=== PATIENT | female | born 1965 | race Caucasian/White ===

== ENCOUNTER 2020-05-19 | Outpatient (REF) | payer OTHER, SELFPAY ==
[2020-05-20 13:50] LABS: FIT1 NEGATIVE (NEGATIVE)
[2020-05-20 13:51] LABS: FIT Int Ctl YES; FIT2 NEGATIVE (NEGATIVE)
== END 2020-05-19 00:01 | disposition home or self-care (01) ==
LOC: HO.LNP
PROVIDERS: Visit Provider Internal Medicine
DX: R19.5 Other fecal abnormalities (principal)
CPT/HCPCS: 82274

== ENCOUNTER 2020-05-20 07:14 | Outpatient (REF) | payer OTHER, SELFPAY ==
[2020-05-20 11:07] LABS: MANUAL DIFF FLAG NO
[2020-05-20 11:22] LABS: Basophils Percent Auto 0.8 % (0-2); Eosinophils Absolute Auto 0.3 X10*3/uL (0.0-0.4); Eosinophils Percent Auto 5.3 % (0-4); Hemoglobin 13.8 g/dl (12.0-16.0); Imm Gran Abs Auto 0.01 X10*3/uL (0.00-0.03); Imm Gran Pct Auto 0.2 % (0.0-0.4); Lymphocytes Absolute Auto 2.2 X10*3/uL (1.2-4.9); Lymphocytes Percent Auto 43.8 % (20-40); Mean Corpuscular HGB Conc 32.9 g/dl (31.0-35.0); Mean Corpuscular Hemoglobin 28.5 pg (27.0-33.0); Mean Corpuscular Volume 86.6 fL (80-98); Mean Platelet Volume 10.7 fL (9.4-12.3); Monocytes Absolute Auto 0.5 X10*3/uL (0.1-1.2); Monocytes Percent Auto 10.8 % (2-11); Neutrophils Absolute Auto 1.9 X10*3/uL (2.0-8.3); Neutrophils Percent Auto 39.1 % (45-73); Platelet Count 248 X10*3/uL (160-400); Red Blood Count 4.85 X10*6/uL (4.20-5.50); Red Cell Distribution Width 12.7 % (11.0-16.0); White Blood Count 4.9 X10*3/uL (4.8-10.8)
[2020-05-20 11:52] LABS: Alanine Aminotransferase 13 U/L (0-31); Anion Gap 14 (12-20); Aspartate Amino Transferase 19 U/L (5-31); Blood Urea Nitrogen 16 mg/dL (9-16); Calcium 8.8 mg/dL (8.4-10.2); Carbon Dioxide 29 mmol/L (22-29); Chloride 105 mmol/L (96-108); Cholesterol 201 mg/dL; Estimated Glomerular Filt Rate > 60; Glucose Fasting 102 mg/dL (60-99); HDL Cholesterol 57 mg/dL; Iron 74 mcg/dL (30-160); LDL Cholesterol Calculated 133 mg/dl; Percent Iron Saturation 24 % (15-50); Potassium 4.3 mmol/L (3.3-5.1); Sodium 144 mmol/L (135-145); Total Iron Binding Capacity 304 mcg/dL (228-428); Triglycerides 57 mg/dL; Unsaturated Iron Binding 230 ug/dL
[2020-05-20 12:18] LABS: Ferritin 69 ng/mL (10-250); Free T4 (Free Thyroxine) 0.97 ng/dL (0.71-1.85); Thyroid Stimulating Hormone 1.55 uIU/mL (0.32-4.0); Vitamin D 25-OH Total 31.3 ng/mL (>30)
[2020-05-21 08:21] LABS: Thyroid Peroxidase Antibodies 1 IU/mL (<9)
== END 2020-05-20 07:15 | disposition home or self-care (01) ==
LOC: HO.HMGCLDS 07:14
PROVIDERS: PCP Internal Medicine; Visit Provider Internal Medicine
DX: Z00.01 Encounter for general adult medical examination with abnormal findings (principal); E03.9 Hypothyroidism, unspecified; E28.319 Asymptomatic premature menopause; E55.9 Vitamin D deficiency, unspecified; I10 Essential (primary) hypertension; Z86.2 Personal history of diseases of the blood and blood-forming organs and certain disorders involving the immune mechanism
CPT/HCPCS: 36415; 80048; 80061; 82306; 82728; 83540; 84439; 84443; 84450; 84460; 85025; 86376

== ENCOUNTER 2021-03-25 14:24 | Outpatient (REF) | payer OTHER, SELFPAY ==
--- NOTE | ~2021-03-25 | MM_ITS ---
EXAMINATION: MM SCREENING DIGITAL BREAST TOMOSYNTHESIS, BILATERAL CLINICAL INFORMATION: Screening. Asymptomatic. The lifetime risk of breast cancer based on the Tyrer-Cuzick Model is 9%. COMPARISON: Mammography: 11/29/2019, 07/04/2018, 06/22/2017 TECHNIQUE: Digital breast tomosynthesis is performed in both the craniocaudal and mediolateral oblique views along with computer-aided detection (CAD). Synthesized 2D images are generated from the tomosynthesis. FINDINGS: There are scattered areas of fibroglandular density (ACR BI-RADS breast composition Category b). There are no significant masses, abnormal calcifications, or other abnormalities. Small benign nodularity mid central 6:00 position left breast is decreased since 2018. There is no developing density or architectural abnormality. The bilateral axilla and skin contours are unremarkable. MM/MM tomosynthesis screening BI IMPRESSION: No mammographic evidence of malignancy. ASSESSMENT: BI-RADS 2: Benign RECOMMENDATION: Routine annual mammography screening. This patient's information was entered into a reminder system with a target due date for their next mammogram.
== END 2021-03-25 14:25 | disposition home or self-care (01) ==
LOC: HO.MAMMO 14:24
PROVIDERS: PCP Internal Medicine; Visit Provider Internal Medicine
DX: Z12.31 Encounter for screening mammogram for malignant neoplasm of breast (principal)
CPT/HCPCS: 77063; 77067

== ENCOUNTER 2021-06-05 14:53 | Outpatient (REF) | payer OTHER, SELFPAY ==
--- NOTE | ~2021-06-05 | XR_ITS ---
EXAMINATION: XR SHOULDER, RIGHT CLINICAL INFORMATION: Right shoulder pain COMPARISON: None TECHNIQUE: Right shoulder is imaged in 3 views. FINDINGS: There is no fracture, dislocation, destructive process. No arthropathy. No joint narrowing or erosive change. Bony mineralization is normal. There are no visible rotator cuff calcifications. XR/XR shoulder RT min 2V IMPRESSION: Normal right shoulder.
== END 2021-06-05 14:54 | disposition home or self-care (01) ==
LOC: HO.HOSX 14:53
PROVIDERS: PCP Internal Medicine; Visit Provider Orthopaedic Surgery
DX: M25.511 Pain in right shoulder (principal); S46.211A Strain of muscle, fascia and tendon of other parts of biceps, right arm, initial encounter; X58.XXXA Exposure to other specified factors, initial encounter; Y93.9 Activity, unspecified; Y92.9 Unspecified place or not applicable; Y99.8 Other external cause status; D64.9 Anemia, unspecified; E03.9 Hypothyroidism, unspecified; E55.9 Vitamin D deficiency, unspecified; J45.20 Mild intermittent asthma, uncomplicated; Z96.611 Presence of right artificial shoulder joint
CPT/HCPCS: 73030

== ENCOUNTER → 2021-08-07 08:58 | Outpatient (BNVA) | payer OTHER, SELFPAY | PROVIDERS: PCP Internal Medicine; Visit Provider Orthopaedic Surgery | DX: Z13.89 Encounter for screening for other disorder (principal) ==

== ENCOUNTER 2021-08-20 08:00 | Outpatient (RCR) | payer OTHER, SELFPAY ==
--- NOTE | 2021-07-15 13:47 | MHC.PT.EP ---
[facility] [place] Office [place] Office [place] Office [address] David Madden [address] [phone] F: [phone] F: [phone] F: [phone] F: [phone] Physical Therapy Plan of Care Date of Evaluation: Date of Surgery: Diagnosis: This is a 55 yo female presenting to skilled PT with a script for tear of R bicep muscle Assessment: This is a 55 yo female presenting to skilled PT with a script for tear of R bicep muscle. She reports that her pain has been present for about 6-7 months ago but has gotten significantly worse recently (pain was gradual without injury). Pain is located at the R shoulder and runs down the elbow or a little past. Pain is described as stabbing and burning. Pain is pretty constant. She also has a hx of left shoulder 04/15/2016, pain feels very similar to this on the R. Pain increases with reaching, lifting, ADLs. Assessment reveals pain that ranges up to a 7/10. She demos decreased shoulder and cervical ROM, decreased shoulder and scapular strength, impaired posture with forward GHJ, TTP throughout GHJ and scap as well as gross functional decline with pushing, pulling, reaching and lifting. She demos + s/s for impingement. She is a good candidate for skilled PT 2x/wk for 5wks however to due schedule she will be coming in 1x/wk and will be I with program at home. She is interested in an MRI for further dx especially as her symptoms are similar to her L prior to surgery Frequency and Duration: The patient will be seen 2x/wk for 5wks Short Term Goals: I in HEP Demo proper cervical alignment and posture with ther-ex, no PT cuing Nursing Home Goals: Demo normal cervical AROM without pain Improve pain to no more than 2/10 at the worst Improve SPADI by 10 points Tolerate sleeping through the night without waking from pain Demo at least 4+/5 scapular and shoulder strength Treatment Plan: Modalities to reduce pain, spasms and effusion. Manual therapy to restore motion and function. Therapeutic exercise to improve strength and flexibility. Neuromuscular re-education for posture and balance. Therapeutic activities to return to functional activities of daily living. Electronically signed by: Davina Cash PT Please sign and return to therapist. Thank you for your referral.
--- NOTE | 2021-08-06 09:02 | MHC.PT.PR ---
[facility] [place] Office [place] Office [place] Office [address] David Madden [address] [phone] F: [phone] F: [phone] F: [phone] F: [phone] Physical Therapy Progress Note Diagnosis: This is a 55 yo female presenting to skilled PT with a script for tear of R bicep muscle Date of Surgery: Date of Evaluation: 07/15/21 Treatments to Date: 4 Cancellations to Date: 0 No Shows to Date: 0 Subjective: Patient feels like pain is getting worse, pain is radiating into the elbow Pain Score and Location: 7 R shoulder Objective Measures: Please see eval Assessment: 08/06: Rebeca is seeing ortho again tomorrow. She feels like she is getting worse, pain is now radiating into the elbow. With PT we have tried ionto for pain, manual and soft tissue tendon massage if tendinopathy present, postural ed with light strengthening and ROM to improve function and prevent frozen shoulder. Tx techniques do not appear to be helping and we discussed referral back to ortho at this time. Her MRI has been denied in the past by insurance. She does still have 3 more appointments booked, educated her to call my office after she sees the MD today. Held ionto patch 07/30: Patient continues to have pain, ionto patch provided 3 hrs of relief so continued this today with #2. She will be calling ortho for a follow up as she feels like her pain is similar to the last time she had surgery. 07/25: Patient was very tender with IASTM. We discussed the ionto patch which we trialed today as #1 as she felt like her pain was deeper than muscle. Skin intact to light touch and ed on care was given. Updated HEP once more. Still reported pain s/p session. This is a 55 yo female presenting to skilled PT with a script for tear of R bicep muscle. She reports that her pain has been present for about 6-7 months ago but has gotten significantly worse recently (pain was gradual without injury). Pain is located at the R shoulder and runs down the elbow or a little past. Pain is described as stabbing and burning. Pain is pretty constant. She also has a hx of left shoulder 04/15/2016, pain feels very similar to this on the R. Pain increases with reaching, lifting, ADLs. Assessment reveals pain that ranges up to a 7/10. She demos decreased shoulder and cervical ROM, decreased shoulder and scapular strength, impaired posture with forward GHJ, TTP throughout GHJ and scap as well as gross functional decline with pushing, pulling, reaching and lifting. She demos + s/s for impingement. She is a good candidate for skilled PT 2x/wk for 5wks however to due schedule she will be coming in 1x/wk and will be I with program at home. She is interested in an MRI for further dx especially as her symptoms are similar to her L prior to surgery PT Plan: Hold PT Frequency and Duration: The patient will be seen 2x/wk for 5wks Treatment Plan: Therapeutic Exercise Dynamic Therapeutic Activities Neuromuscular Re-ed Manual Therapies Joint Mobilization Taping Home Exercise Program Patient Education Hot or Cold Pack Reviewed/ Agreed with Student Documentation: Therapist: Thank you once again for your referral.
--- NOTE | 2021-09-19 12:35 | MHC.PT.DC ---
[facility] [place] Office [place] Office [place] Office [address] David Madden [address] [phone] F: [phone] F: [phone] F: [phone] F: [phone] Physical Therapy Discharge Report Diagnosis: This is a 55 yo female presenting to skilled PT with a script for tear of R bicep muscle Date of Surgery: Date of Evaluation: 07/15/21 Date of Discharge: Treatments to Date: 6 Cancellations to Date: 0 No Shows to Date: 0 Discharge Status: Discharge Summary: At the last tx session, patient was still very sore and painful. Performed ther-ex to tolerance. Ended the session with and educated her to call MRI to see if referral cleared as she is leaving soon for [place]. Patient did not return for further tx, DC'd chart after 30 days Electronically signed by: Davina Cash PT Please sign and return to therapist. Thank you for your referral.
== END 2021-09-19 12:36 | disposition home or self-care (01) ==
LOC: HO.PTCHIC 08:00
PROVIDERS: PCP Internal Medicine; Visit Provider Orthopaedic Surgery
DX: S46.211A Strain of muscle, fascia and tendon of other parts of biceps, right arm, initial encounter (principal)
CPT/HCPCS: 97110; 97140; 97162

== ENCOUNTER 2021-09-03 13:12 | Outpatient (REF) | payer OTHER, SELFPAY ==
--- NOTE | ~2021-09-03 | FL_ITS ---
EXAMINATION: XR ARTHROGRAM SHOULDER, RIGHT CLINICAL INFORMATION: Right shoulder pain. Right biceps pain. COMPARISON: None TECHNIQUE: Following explaining fluoroscopy-guided right shoulder arthrogram procedure, benefits and risk, a written consent was obtained. Patient was placed supine on fluoroscopy table and anterior aspect of right shoulder was cleaned and draped in usual sterile manner. 1% lidocaine was injected puncture site. 8 22-gauge spinal needle was then inserted from anterior skin into the joint space and 2 mL of none contrast was injected and single image obtained for documentation. Subsequently 0.1 mL of gadolinium diluted in 10 mL of saline and 1% lidocaine was injected and needle withdrawn. Complete hemostasis was achieved at puncture site. Sterile Band-Aid applied postprocedure. Patient tolerated procedure extremely well. FINDINGS: There is a normal glenohumeral and AC joint space. There is contrast in right glenohumeral joint space. MRI gadolinium contrast was injected into the right shoulder joint. FLUOROSCOPY TIME: 2.0 minutes DOSE AREA PRODUCT: 4.490 uGy-m2 (microgray-meter squared) FL/FL arthrogram shoulder RT IMPRESSION: Fluoroscopy-guided right shoulder arthrogram for MRI imaging.
--- NOTE | ~2021-09-03 | MR_ITS ---
EXAMINATION: MR SHOULDER WITH CONTRAST, RIGHT CLINICAL INFORMATION: Right shoulder pain radiating down the arm. Biceps pain. COMPARISON: Right shoulder fluoroscopic arthrography done earlier the same day. Right shoulder radiographs dated 06/05/2021. TECHNIQUE: MRI of the shoulder was performed following the intra-articular administration of a dilute gadolinium-containing solution (arthrogram) on a high-field scanner. FINDINGS: ROTATOR CUFF: Mild articular surface fraying of the distal supraspinatus tendon measuring up to 1.2 cm in ML dimension. No full-thickness rotator cuff tendon tear. No muscle atrophy or fatty infiltration. BICEPS: There is attenuation of the proximal long head biceps tendon involving the intra-articular portion with associated linear contrast signal, likely representing longitudinal partial tearing. CORACOACROMIAL ARCH: The undersurface of the acromion is minimally curved with no subacromial spur. Mild acromioclavicular osteoarthritis. LABRUM/CAPSULE: Contrast extends through the undersurface of the superior and posterosuperior labrum consistent with undersurface tearing. Normal variant hypertrophied medial glenohumeral ligament. GLENOHUMERAL JOINT/MARROW: Normal. MR/MR shoulder RT w con IMPRESSION: 1. Undersurface tearing of the superior and posterosuperior labrum. 2. Attenuation/longitudinal partial tearing of the intra-articular proximal long head biceps tendon. No full-thickness tendon tear or tendon retraction. 3. Mild articular surface fraying of the distal supraspinatus tendon. No full-thickness rotator cuff tendon tear. 4. Mild acromioclavicular osteoarthritis.
== END 2021-09-03 13:13 | disposition home or self-care (01) ==
LOC: HO.XRAY 13:12
PROVIDERS: PCP Internal Medicine; Visit Provider Orthopaedic Surgery
DX: S46.211A Strain of muscle, fascia and tendon of other parts of biceps, right arm, initial encounter (principal); X58.XXXA Exposure to other specified factors, initial encounter; Y93.9 Activity, unspecified; Y92.9 Unspecified place or not applicable; Y99.9 Unspecified external cause status
CPT/HCPCS: 23350; 73040; 73222; A9585

== ENCOUNTER → 2021-09-08 08:38 | Outpatient (BNVA) | payer OTHER, SELFPAY | PROVIDERS: PCP Internal Medicine; Visit Provider Orthopaedic Surgery | DX: S46.211D Strain of muscle, fascia and tendon of other parts of biceps, right arm, subsequent encounter (principal) | CPT/HCPCS: 20610; J1100 ==

== ENCOUNTER 2021-10-03 08:13 | Outpatient (REF) | payer OTHER, SELFPAY ==
[2021-10-03 12:31] LABS: Alanine Aminotransferase 25 U/L (0-31); Anion Gap 12 (12-20); Aspartate Amino Transferase 25 U/L (5-31); Blood Urea Nitrogen 13 mg/dL (9-16); Calcium 8.8 mg/dL (8.4-10.2); Carbon Dioxide 26 mmol/L (22-29); Chloride 106 mmol/L (96-108); Cholesterol 204 mg/dL; Estimated Glomerular Filt Rate > 60; Glucose Fasting 105 mg/dL (60-99); HDL Cholesterol 57 mg/dL; LDL Cholesterol Calculated 136 mg/dl; Potassium 4.1 mmol/L (3.3-5.1); Sodium 140 mmol/L (135-145); Triglycerides 59 mg/dL
[2021-10-03 12:39] LABS: Free T4 (Free Thyroxine) 1.03 ng/dL (0.71-1.85); Thyroid Stimulating Hormone 1.38 uIU/mL (0.32-4.0); Vitamin D 25-OH Total 40.1 ng/mL (>30)
== END 2021-10-03 08:14 | disposition home or self-care (01) ==
LOC: HO.HMGCLDS 08:13
PROVIDERS: Visit Provider Internal Medicine
DX: Z00.00 Encounter for general adult medical examination without abnormal findings (principal); E28.319 Asymptomatic premature menopause; E55.9 Vitamin D deficiency, unspecified; E03.9 Hypothyroidism, unspecified
CPT/HCPCS: 36415; 80048; 80061; 82306; 84439; 84443; 84450; 84460

== ENCOUNTER 2021-10-06 11:34 | Outpatient (REF) | payer OTHER, SELFPAY ==
[2021-10-09 18:21] LABS: HPV mRNA E6/E7 rflx Not Detected (Not Detected)
== END 2021-10-06 11:35 | disposition home or self-care (01) ==
LOC: HO.LNP 11:34
PROVIDERS: Visit Provider Internal Medicine
DX: Z12.4 Encounter for screening for malignant neoplasm of cervix (principal); Z11.51 Encounter for screening for human papillomavirus (HPV)
CPT/HCPCS: 87624; 88142

== ENCOUNTER 2022-02-11 07:31 | Day surgery (SDC) | payer OTHER, SELFPAY ==
--- NOTE | 2022-02-10 08:15 | HO.ANESPROP2 ---
Documented by User: Latonia Vang NP 02/10/22 08:16 HPI - Anesthesia Eval Consult details Narrative: 56yo F for Right Shoulder Bicep Tenotomy PMFSH Active Problems Active Problems: All Active Problems (Updated 10/06/21 @ 09:12 by Kerry Martínez MD) Chronic insomnia (Acute) Dyslipidemia (Acute) Impaired fasting glucose (Acute) Internal derangement of right shoulder (Acute) Lateral epicondylitis, right elbow (Acute) Tear of right biceps muscle (Acute) Menopause, premature (Acute) Mild intermittent asthma (Acute) Acquired hypothyroidism (Acute) Past Medical History Medical History Acquired hypothyroidism Chronic insomnia Dyslipidemia History of anemia Impaired fasting glucose Menopause, premature Mild intermittent asthma Vitamin D deficiency Family History Family History Father Myocardial infarction, Onset Age: 65 Maternal Grandmother Breast cancer, Onset Age: 68 Surgical History Surgical History H/O tubal ligation History of arthroplasty of left shoulder Hx of removal of cyst Social History Social History Housing: House Alcohol intake: current Patient Tobacco Use Status: Former Tobacco user Quit Date: > 20 yr ago e-Cigarette/Vaping Use: Never Used Current occupational status: employed 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 Cognitive needs: No Hearing needs: No Vision needs: No Meds Allergies Allergy/AdvReac Type Severity Reaction Status Date / Time No Known Allergies Allergy Verified 02/11/22 07:48 [No Known Allergies*] Home Medications Medication Instructions Recorded Confirmed Last Taken Type levothyroxine 50 mcg tablet 50 mcg PO BEDTIME 02/11/22 02/11/22 Unknown History Exam Exam Date and Time: February 10, 2022 0815 Pertinent Lab Results Pertinent Lab Results: Laboratory Tests 05/20/20 10/03/21 07:20 08:18 WBC 4.9 Hgb 13.8 Hct 42.0 Plt Count 248 Sodium 140 Potassium 4.1 Chloride 106 Carbon Dioxide 26 BUN 13 Creatinine 0.77 Assessment and Plan Assessment Anesthesia Assessment: Chart Reviewed Documented by User: Yuriy Sorto MD 02/11/22 18:43 [facility] Past Medical History Medical History Acquired hypothyroidism Chronic insomnia Dyslipidemia History of anemia Impaired fasting glucose Menopause, premature Mild intermittent asthma Vitamin D deficiency Functional capacity: independent ambulation Family History Family History Father Myocardial infarction, Onset Age: 65 Maternal Grandmother Breast cancer, Onset Age: 68 Family history of problems with anesthesia: No Surgical History Surgical History H/O tubal ligation History of arthroplasty of left shoulder Hx of removal of cyst History of Problems with Anesthesia: No Social History Social History Housing: House Alcohol intake: current Patient Tobacco Use Status: Former Tobacco user Quit Date: > 20 yr ago e-Cigarette/Vaping Use: Never Used Current occupational status: employed 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 Cognitive needs: No Hearing needs: No Vision needs: No Meds Allergies Allergy/AdvReac Type Severity Reaction Status Date / Time No Known Allergies Allergy Verified 02/11/22 07:48 [No Known Allergies*] Home Medications Medication Instructions Recorded Confirmed Last Taken Type levothyroxine 50 mcg tablet 50 mcg PO BEDTIME 02/11/22 02/11/22 Unknown History Exam Airway Mallampati Class: III TM Dist: >3cm Neck ROM: Full Loose/Missing/Broken Teeth: Yes (Fillings ) Heart: S1,S2 Lungs: b/l breath sounds Assessment and Plan Assessment Anesthesia Assessment: Anesthesia Plan Discussed Final Anesthetic Review Family History of Problems with Anesthesia: No History of Problems with Anesthesia: No NPO: Yes ASA Class: II Final Preanesthetic Review: Meds/Allgs Chart Reviewed, Consent Obtained/Reviewed and Anes Risks/Benef Reviewed Patient Risk: Intermediate Procedure Risk: Intermediate Anesthetic Plan Anesthetic Plan: GA and Regional Block Disposition: Standard PACU
[2022-02-11] VITALS (10 sets, daily range): BP systolic 102–127; BP diastolic 45–72; PULSE 61–83; RESP 12–18; TEMP 36.1–36.6; O2SAT 94–100; BMI 28.6
[2022-02-11] MEDS: Lactated Ringers 1,000 ML 100 ML IVCONT (08:11)
--- NOTE | 2022-02-11 09:16 | MHC.SHP ---
Pre-Procedural Eval Section A Date of Service: 02/11/22 The patient is an INPATIENT: No Changes since office visit: No Cold of Flu in the past 2 weeks, No New Medical Problems, No Changes in Medication and No Patient answered all questions The History & Physical has been completed within 30 days and I have reviewed it.: Yes Section B Chief Complaint: Strain of muscle, fascia and tendon of other parts Allergies: Allergies Allergy/AdvReac Type Severity Reaction Status Date / Time No Known Allergies Allergy Verified 02/11/22 07:48 [No Known Allergies*] Plan I have reviewed the history and physical and performed a pertinent physical examination on my patient. No changes have occurred unless specified.
--- NOTE | 2022-02-11 11:26 | P.BOP_ITS ---
Brief Operative Note Date of Service: 02/11/22 Pre-op diagnosis: Right shoulder biceps tendon tear Post-op diagnosis: other (SLAP tear with biceps tendon tear right shoulder) Procedure: Shoulder with labral debridement and sub pectoral biceps tenodesis Implants: Arthrex cieps button with interence screw Surgeon: Chandra Hatch MD Anesthesia: GETA Was an Child Care Attendant used for this Procedure?: Yes Child Care Attendant: Margo Lujan Estimated blood loss (mL): 25 IV fluids (mL): 800 Pathology: none sent Condition: stable Disposition: PACU
[2022-02-11] MEDS: Acetaminophen 325 MG TABLET 650 MG PO (12:35)
--- NOTE | 2022-02-11 15:06 | PC.NURSE ---
Patient states nausea in DC area. Pt given ice pack and cool cloth. Anesthesia notified. Pt states feeling better after 20 min passed and anesthesia assessed her. Pt discharged home with daughter.
--- NOTE | 2022-02-11 15:08 | PC.NURSE ---
vital signs upon discharge; 117/62, HR 84.
--- NOTE | 2022-02-17 08:55 | W.PM.OPN ---
Operative Note Operative Note Date of Service: 02/11/22 Narrative: Date of Service: 02/11/22 Pre-op diagnosis: Right shoulder biceps tendon tear Post-op diagnosis: other (SLAP tear with biceps tendon tear right shoulder) Procedure: Shoulder with labral debridement and sub pectoral biceps tenodesis Implants: Arthrex biceps button with interference screw Surgeon: Chandra Hatch MD Anesthesia: GETA Was an Chief Deputy Coroner used for this Procedure?: Yes Chief Deputy Coroner: Margo Lujan Estimated blood loss (mL): 25 IV fluids (mL): 800 Pathology: none sent Condition: stable Disposition: PACU Procedure in detail: Patient was brought to the operating room and placed the the beach chair position. All bony prominences were well padded and the limb was prepped and draped in standard sterile fashion. A time out was called to identify proper site, proper procedure and proper surgeon. IV antibiotics per weight were administered. I began by making a posterolateral stab incision with a 15 blade. A blunt trochar was placed into the glenohumeral joint and I insufflated the joint with saline and a 30 degree arthroscope was placed. I established an outside- in anterior portal just distal to the biceps tendon. I then began my inspection of the glenohumeral joint. There was 80% of the biceps that was torn at the labral anchor with associated degenerative tearing of the labrum circumferentially with G1-2 change at the superior glenoid without associated humeral head changes. The biceps was scarred anteriorly and procximal to the bicipital groove. The subscapularis was intacty and normal in appearance. There was nl undersurface RTC. I debrided the loose cartilage of the glenoid and the degenerative labral tearing and performed a biceps tenotomy at the biceps-labral junction. I then removed the arthroscopic instrumentation and an incision over the pec insertion at the proximal humerus was made. Blunt dissection down to bone was performed and the biceps was palpated and then the proiximal end was brought out through the incision. The biceps was then whip-stitched and a bicortical beefpin was placed at the distal aspect of the bicipital groove. The beefpin was overdrilled unicortically. The tendon was then attached to a button and this was flipped beyond the second cortex and then the tendon was dunked down into the humeral canal. An interference screw was placed over one suture limb and the suture was then tied over the srew. I had excellent tension on the biceps with stable fixation. The wound was then irrigated and closed with absorbable suture and skin glue. The portals were closed with nylon. Patient was then placed into sterile dressing and an abduction sling. She was extubated and brought the the recovery room in stable condition. There were no known complications.
== END 2022-02-11 15:09 | disposition home or self-care (01) ==
PROVIDERS: PCP Internal Medicine; Visit Provider Orthopaedic Surgery
PROC: (CPT 29805; principal; 2022-02-11 09:30)
DX: S43.431A Superior glenoid labrum lesion of right shoulder, initial encounter (principal); S46.111A Strain of muscle, fascia and tendon of long head of biceps, right arm, initial encounter; X58.XXXA Exposure to other specified factors, initial encounter; Y93.9 Activity, unspecified; Y92.9 Unspecified place or not applicable; Y99.8 Other external cause status; E03.9 Hypothyroidism, unspecified; J45.20 Mild intermittent asthma, uncomplicated; R73.01 Impaired fasting glucose; E55.9 Vitamin D deficiency, unspecified; E78.5 Hyperlipidemia, unspecified; F43.29 Adjustment disorder with other symptoms; F51.04 Psychophysiologic insomnia; Z87.891 Personal history of nicotine dependence
CPT/HCPCS: 29807; 29828; C1713; J0171; J0690; J1100; J1170; J2250; J2405; J2795; J3010

== ENCOUNTER → 2022-05-04 08:31 | Outpatient (BNVA) | payer OTHER, SELFPAY | PROVIDERS: PCP Internal Medicine; Visit Provider Orthopaedic Surgery | DX: Z13.89 Encounter for screening for other disorder (principal) ==

== ENCOUNTER 2022-05-27 08:00 | Outpatient (RCR) | payer OTHER, SELFPAY ==
--- NOTE | 2022-09-07 08:14 | MHC.PT.DC ---
[facility] [place] Office [place] Office [place] Office [address] David Madden [address] [phone] F: [phone] F: [phone] F: [phone] F: [phone] Physical Therapy Discharge Report Diagnosis: Shoulder with labral debridement and sub pectoral biceps tenodesis Date of Surgery: 02/11/22 Date of Evaluation: 02/16/22 Date of Discharge: 06/09/22 Treatments to Date: 14 Cancellations to Date: 0 No Shows to Date: 0 Discharge Status: Independent with HEP Discharge Summary: We did decide to transition back to HEP after last visit which pt is increasingly I with and appropriate to do. 05/27/22: pt progressing well with skilled PT with improving in IR and ER (IR 54, ER 69). She will check with insurance as she discerns how much more PT to participate in. We discussed plan for moving forward. 05/20/22: re-educated in ideal HEP use today. IR to about 48 degrees, ER to 66. We will continue to progress ROM and strength in these areas. 05/13; Pt most restriceted with int rot. Pt I with HEP. 05/06/22: continuing to progress well with ROM. we will update strength HEP NV. 04/22/22: pt has been progressing well with skilled PT for strength and ROM. due to work commitments, she will not be in PT next week. we issued updated HEP for the next 1+ weeks. ER to 59. Flexion to 158. IR still limited significantly. 04/15/22: pt progressing since last week with ROM and strength. resumed prior activity level today with no adverse reactiosn. we will attempt to progress strength NV. 04/08/22:pt with some discomfort more than normal over the last week. we held on progression and improvised HEP For the next week. 04/01/2022: Initiated ER/IR with the band today and no adverse reaction. ROM is improving although she still gets some discomfort as we approach end range so we were cautious to stay away from pushing this too much. Added weight to prone exercises per protocol as well. She does tend to move quickly through exercises so cues intermittently to focus on slow controlled motion. 03/26/2022: Pt with some increase in soreness today. No active drainage over incision but there are 2 small areas that appear to be scabbed over. Advised her to keep an eye on this and call the surgeon if she notices any new drainage that looks like pus and/or has an odor. She verbalized understanding. Completes all exercises as above with some soreness but no lingering pain reported. Requires cues intermittently for appropriate form to avoid stressing repair and better execution after cues. Advised continuing with exercises at home within pain tolerance. Pt with minor soreness today. otherwise continuing to respond well. updated HEP today. Electronically signed by: Reuben Fletcher, PT Please sign and return to therapist. Thank you for your referral.
== END 2022-09-07 09:15 | disposition home or self-care (01) ==
LOC: HO.PTCHIC 08:00
PROVIDERS: Visit Provider Physician Assistant
DX: S46.211A Strain of muscle, fascia and tendon of other parts of biceps, right arm, initial encounter (principal)
CPT/HCPCS: 97110; 97140; 97161

== ENCOUNTER 2022-07-29 07:35 | Outpatient (REF) | payer OTHER, SELFPAY ==
--- NOTE | ~2022-07-29 | MM_ITS ---
EXAMINATION: MM SCREENING DIGITAL BREAST TOMOSYNTHESIS, BILATERAL CLINICAL INFORMATION: Screening. Asymptomatic. The lifetime risk of breast cancer based on the Tyrer-Cuzick Model is 7%. COMPARISON: Mammography: 03/25/2021, 11/29/2019, 07/04/2018 TECHNIQUE: Digital breast tomosynthesis is performed in both the craniocaudal and mediolateral oblique views along with computer-aided detection (CAD). Synthesized 2D images are generated from the tomosynthesis. FINDINGS: There are scattered areas of fibroglandular density (ACR BI-RADS breast composition Category b). There are no significant masses, abnormal calcifications, or other abnormalities. Parenchymal pattern is similar to prior studies. There is no developing density or architectural abnormality. The axilla and skin contours are unremarkable. No significant changes. MM/MM tomosynthesis screening BI IMPRESSION: No mammographic evidence of malignancy. ASSESSMENT: BI-RADS 1: Negative RECOMMENDATION: Routine annual mammography screening. This patient's information was entered into a reminder system with a target due date for their next mammogram.
== END 2022-07-29 07:36 | disposition home or self-care (01) ==
LOC: HO.MAMMO 07:35
PROVIDERS: PCP Internal Medicine; Visit Provider Internal Medicine
DX: Z12.31 Encounter for screening mammogram for malignant neoplasm of breast (principal)
CPT/HCPCS: 77063; 77067

== ENCOUNTER 2022-10-20 08:52 | Outpatient (AMB) | payer OTHER, SELFPAY ==
--- NOTE | 2022-10-20 08:56 | A.OFFPC_ITS ---
Vital Signs 10/20/22 08:59 Height 4 ft 11 in Weight 149 lb BMI 30.1 BP 100/62 Blood Pressure Location Rt brachial Position Sitting Pulse 67 Pulse Source Pulse Oximeter Pulse Oximetry (%) 96 Oxygen Delivery Method Room Air Intake Visit Reasons: PE Intake Note: Pt is here today for her PE Allergies No Known Allergies [No Known Allergies*] Allergy (Verified 12/23/22 14:20) Medication List - Last Reconciled 10/20/22 by Kerry Martínez MD zolpidem ER 6.25 mg PO BEDTIME PRN Tobacco use date assessed: 10/20/22 Dental Screening Dental Screen Date: 10/20/22 Did you have a dental visit in the last 12 months?: Yes Did you have a dental problem in the last 6 months where you did not have access to dental care?: No Was dental information given to patient?: Patient has dentist HPI PE HPI Details 57-year-old female, here today for physi neena exam. She has history of hypothyroidism, previously on levothyroxine 50 mcg daily but has been off medication now for some time, currently asymptomatic with thyroid levels within normal limits. Has dyslipidemia, impaired fasting glucose, currently controlled with diet. She has history of mild intermittent asthma currently not needing any inhalers at present time. She has chronic insomnia, takes zolpidem 6.25 mg at bedtime as needed which helps. She is overdue for her screening mammogram, last done in 2020 with benign findings. She had a cervical cancer screening done and pelvic exam a year ago with no evidence of malignancy negative HPV but no endocervical cells seen. She has never had a screening colonoscopy declined procedure, had a fit test done approximately 2 years ago which came back negative. She had recent surgery done for right biceps tendon tear 02/11/[address] Hatch, still recovering and has not regained full function right arm. She has been having episodes of anxiety and low mood,, with difficulty sleeping at night, takes zolpidem as needed which helps. She has had her COVID vaccination and Tdap, has not yet had her Shingrix vaccine, gets yearly flu shots. [facility] Medical History (Updated 12/24/22 @ 02:59 by Kerry Martínez MD) Right medial knee pain Anxiety and depression Annual visit for general adult medical examination with abnormal findings Chronic insomnia Dyslipidemia Impaired fasting glucose History of anemia Vitamin D deficiency Menopause, premature Mild intermittent asthma Acquired hypothyroidism Surgical History (Updated 12/24/22 @ 02:50 by Kerry Martínez MD) History of arthroplasty of right shoulder Hx of removal of cyst H/O tubal ligation Family History Father Myocardial infarction, Onset Age: 65 Maternal Grandmother Breast cancer, Onset Age: 68 Social History Housing: House Alcohol intake: current Patient Tobacco Use Status: Former Tobacco user Quit Date: > 20 yr ago e-Cigarette/Vaping Use: Never Used Current occupational status: employed Current occupation: [employer]/ right hand dominant Cognitive needs: No Hearing needs: No Vision needs: Yes Questionnaire PHQ-9 Over the last 2 weeks, how often have you been bothered by any of the following problems? 1. Little interest or pleasure in doing things: more than half the days 2. Feeling down, depressed, or hopeless: more than half the days 3. Trouble falling or staying asleep, or sleeping too much: nearly every day 4. Feeling tired or having little energy: several days 5. Poor appetite or overeating: several days 6. Feeling bad about yourself - or that you are a failure or have let yourself or your family down: more than half the days 7. Trouble concentrating on things, such as reading the newspaper or watching television: several days 8. Moving or speaking so slowly that other people could have noticed. Or the opposite - being so fidgety or restless that you have been moving around a lot more than usual: not at all 9. Thoughts that you would be better off or of hurting yourself in some way: not at all Total score: 12 Depression Screening Interpretation: Positive Source: Developed by Drs. Sabino Peace, Jacey Mejia, Rafi Crystal and colleagues, with an educational fareed from [employer]. Thrive Questionnaire Date Thrive assessed: 10/20/22 I am a: Patient What is your living situation today?: I have a steady place to live Within the past 12 months, did the food you bought not last and you didn't have the money to get more?: Never true Within the past 12 months, did you worry whether your food would run out before you got money to buy more?: Never true Do you have trouble getting transportation to medical appointments?: No Do you have trouble paying your heating and electricity bill?: No Do you have trouble taking care of your child, family member or friend?: No Do you have trouble with day-to-day activities such as bathing, preparing meals, shopping, managing finances, etc.?: No Are you interested in more education?: No AUDIT C Alcohol Use Questionnaire (AUDIT-C) 1. How often do you have a drink containing alcohol?: Monthly or less 2. How many drinks containing alcohol do you have on a typical day when you are drinking?: 1 or 2 3. How often do you have six or more drinks on one occasion?: Never Total Score: 1 TELLY-7 AMB Questionnaire TELLY-7 Date TELLY - 7 assessed: 10/20/22 Feeling nervous, anxious, or on edge: 2 = More than half the days Not being able to stop or control worryin = More than half the days Worrying too much about different things: 2 = More than half the days Trouble relaxin = Several days Being so restless that it is hard to sit still: 1 = Several days Becoming easily annoyed or irritable: 2 = More than half the days Feeling afraid as if something awful might happen: 2 = More than half the days Total TELLY-7 score (0-4 normal; 5-9 mild; 10-14 moderate; 15-21 severe): 12 Source: Developed by Drs. Sabino Peace, Jacey Mejia, Rafi Crystal and colleagues, with an educational fareed from [employer]. Review of Systems Const Denies headache(s), Denies malaise, Denies poor appetite and Denies weakness Eyes Details: Goes to [facility] eye exam Denies change in vision ENT Denies dizziness, Denies headache(s) and Denies nasal congestion Card Denies chest pain, Denies lightheadedness and Denies dyspnea Resp Denies chest congestion, Denies cough, Denies dyspnea and Denies wheezing GI Denies abdominal pain, Denies melena, Denies hematochezia, Denies change in bowel habits and Denies heartburn Reports no additional complaints Musc Denies joint swelling and Reports stiffness Skin/Breast Denies breast swelling, Denies breast pain, Denies breast mass and Denies rash Neuro Denies dizziness, Denies headache(s) and Denies weakness Psych Reports as per HPI Endo Reports no additional complaints Adarsh/Lymph Reports no additional complaints Aller/Immun Denies seasonal rhinorrhea and Denies wheezing Physical exam (Primary Care) Vital Signs: Last Vital Signs Pulse 67 10/20/22 08:59 BP 100/62 10/20/22 08:59 Pulse Ox 96 10/20/22 08:59 Oxygen Delivery Method Room Air 10/20/22 08:59 BMI result Body Mass Index 30.1 Tobacco/Smoking Status: Tobacco use Status Tobacco use date assessed 10/20/22 10/20/22 09:02 Patient Tobacco Use Status Former Tobacco user 10/20/22 08:58 e-Cigarette/Vaping Use Never Used 10/20/22 08:58 PHQ-9: PHQ-9 Score PHQ-9: Total score 12 12/24/22 02:36 Depression Screening Interpretation: Positive Thrive Assessment: Date of Thrive Assessment Date Thrive assessed 10/20/22 10/20/22 09:17 Const General: comfortable, no acute distress and alert Orientation/consciousness: patient oriented x3 HENMT Head: Yes normocephalic Ears: external ears normal, TM's normal bilaterally and EAC's normal General nose exam: Normal external nose present Face and sinus: Yes face symmetric Mouth: Normal oral and palatal mucosa present Eyes General: appearance normal, both eyes and all related structures Neck Other: Thyroid nonpalpable Neck: Yes full ROM, Yes no lymphadenopathy and Yes supple Chest Breast/axilla palpation: normal palpation of the breasts Resp Effort & Inspection: normal respiratory effort and able to speak in complete sentences Auscultation: clear to auscultation bilaterally Cardio Rate: regular rate Rhythm: regular rhythm Heart sounds: S1 normal heart sound present and S2 normal heart sound present GI Palpation (GI): Soft to palpation, nontender, no guarding and no masses Auscultation: normal bowel sounds General: Yes no CVA tenderness Back/Spine/Pelvis Back: no CVA tenderness and No back tenderness Skin General skin exam: no rashes or lesions noted Neuro General: patient oriented x3, gait normal, tone normal, moves all extremities, Normal light touch and pain sensation and no focal motor deficits Cognition (Neuro): normal cognition Extrem General: Yes full ROM, Yes no joint enlargement, Yes no clubbing, cyanosis or edema and Yes normal gait Psych Appearance: grossly normal and well kempt Mental Status: mental status grossly normal Speech and movement: Normal speech and movement present Affect: Sad affect present Attitude: cooperative Thought process: Normal thought process present Thought content: Normal thought content present Assessment and Plan Assessment & Plan (1) Annual visit for general adult medical examination with abnormal findings: Code(s): Z00.01 - Encounter for general adult medical examination with abnormal findings Plan: Will check appropriate labs. Continue with regular dental visit every 6 months and regular eye exams, at least every 2 years. Take adequate calcium in diet and vitamin-D 3 at 2000 IU per cap once a day, in addition to weight-bearing exercises to help maintain good muscle tone and weight control. Instructed to do self-breast exam, and get yearly mammogram, already has an appointment for later this year. Pap done last year, with no endocervical cells seen but negative for malignancy will repeat another Pap next year. Patient does not want to get a colonoscopy at present time, had a negative fit test done 2020. Reminded to get her flu shot yearly and her COVID booster which is coming up later this year, advised to also get vaccinated against shingles, 2 doses available at the pharmacy. Up-to-date with her Tdap (2) Dyslipidemia: Comment: borderline- no meds Code(s): E78.5 - Hyperlipidemia, unspecified Plan: Fasting lipid panel ordered (3) Impaired fasting glucose: Code(s): R73.01 - Impaired fasting glucose Plan: Fasting blood sugar and hemoglobin A1c ordered (4) Acquired hypothyroidism: Comment: Thyroid levels within normal limits Code(s): E03.9 - Hypothyroidism, unspecified Plan: Will check TSH and free T4 (5) Anxiety and depression: Code(s): F41.9 - Anxiety disorder, unspecified; F32.A - Depression, unspecified Plan: Started on buspirone 5 mg per tablet to take 1 tablet twice a day . (6) Chronic insomnia: Code(s): F51.04 - Psychophysiologic insomnia Plan: Continue with zolpidem as needed for insomnia (7) Mild intermittent asthma: Code(s): J45.20 - Mild intermittent asthma, uncomplicated Qualifiers: Asthma complication type: uncomplicated Qualified Code(s): J45.20 - Mild intermittent asthma, uncomplicated Plan: Has not had any wheezing or shortness of breath Orders: Orders Free T4 (Free Thyroxine) 3 Months E03.9 - Hypothyroidism, unspecified, E78.5 - Hyperlipidemia, unspecified, R73.01 - Impaired fasting glucose, Z00.01 - Encounter for general adult medical examination with abnormal findings Glucose Fasting 10/21/22 E78.5 - Hyperlipidemia, unspecified, R73.01 - Impaired fasting glucose, E03.9 - Hypothyroidism, unspecified, Z00.01 - Encounter for general adult medical examination with abnormal findings Hemoglobin A1c 10/21/22 E78.5 - Hyperlipidemia, unspecified, R73.01 - Impaired fasting glucose, E03.9 - Hypothyroidism, unspecified, Z00.01 - Encounter for general adult medical examination with abnormal findings Lipid Panel 10/21/22 E78.5 - Hyperlipidemia, unspecified, R73.01 - Impaired fasting glucose, E03.9 - Hypothyroidism, unspecified, Z00.01 - Encounter for general adult medical examination with abnormal findings Thyroid Stimulating Hormone 10/21/22 E78.5 - Hyperlipidemia, unspecified, R73.01 - Impaired fasting glucose, E03.9 - Hypothyroidism, unspecified, Z00.01 - Encounter for general adult medical examination with abnormal findings Medications: New buspirone 5 mg PO TID 90 tabs 0RF F41.9 - Anxiety disorder, unspecified, F32.A - Depression, unspecified Coding Level of Care Code Est Pt Prev Care 40-64y(04214) Diagnoses Annual visit for general adult medical examination with abnormal findings Z00.01 Dyslipidemia E78.5 Impaired fasting glucose R73.01 Acquired hypothyroidism E03.9 Anxiety and depression F41.9; F32.A Chronic insomnia F51.04 Mild intermittent asthma without complication J45.20 Asthma complication type: uncomplicated
[2022-10-20 08:59] VITALS: BP 100/62; PULSE 67; O2SAT 96; BMI 30.1
== END 2022-10-20 09:46 | disposition home or self-care (01) ==
PROVIDERS: Visit Provider Internal Medicine
DX: Z00.01 Encounter for general adult medical examination with abnormal findings (principal); E78.5 Hyperlipidemia, unspecified; R73.01 Impaired fasting glucose; E03.9 Hypothyroidism, unspecified; F41.9 Anxiety disorder, unspecified; F32.A Depression, unspecified; F51.04 Psychophysiologic insomnia; J45.20 Mild intermittent asthma, uncomplicated
CPT/HCPCS: 99396

== ENCOUNTER 2022-10-21 06:34 | Outpatient (REF) | payer OTHER, SELFPAY ==
[2022-10-21 11:45] LABS: Estimated Average Glucose 105 mg/dL; Hemoglobin A1c % 5.3 %
[2022-10-21 11:56] LABS: Cholesterol 215 mg/dL; Glucose Fasting 95 mg/dL (60-99); HDL Cholesterol 58 mg/dL; LDL Cholesterol Calculated 143 mg/dl; Triglycerides 73 mg/dL
[2022-10-21 12:17] LABS: Thyroid Stimulating Hormone 2.76 uIU/mL (0.32-4.0)
== END 2022-10-21 06:35 | disposition home or self-care (01) ==
LOC: HO.HMGCLDS 06:34
PROVIDERS: PCP Internal Medicine; Visit Provider Internal Medicine
DX: Z00.01 Encounter for general adult medical examination with abnormal findings (principal); E78.5 Hyperlipidemia, unspecified; R73.01 Impaired fasting glucose; E03.9 Hypothyroidism, unspecified
CPT/HCPCS: 36415; 80061; 82947; 83036; 84443

== ENCOUNTER 2022-11-03 08:08 | Outpatient (AMB) | payer OTHER, SELFPAY ==
--- NOTE | 2022-11-03 08:09 | MHC.OFFVIS ---
Intake Vital Signs 11/03/22 08:32 Height 4 ft 11 in Weight 149 lb BMI 30.1 Intake Visit Reasons: Newprob-Right knee pain Intake Note: Rebeca is a 56 year old right hand dominant female who presents today for a right knee pain. Hx of injury in August. Patient reports since her injury in August she is unsure what happen but she is feeling a lot of sharp pain and some achiness. She states that her pain is on the medial aspect of the knee and it moves to the back of the knee. Pain is worse when walking, sleeping and getting up for sitting for too long. Patient reports that her right knee is feeling a little bit better today. Allergies No Known Allergies [No Known Allergies*] Allergy (Verified 11/03/22 08:30) HPI Newprob-Right knee pain HPI Details Ms. Jiménez is a 57-year-old female who presents the office today for evaluation of right knee pain. She reports that the knee pain began in August and has progressively gotten worse. She has tried naproxen with no relief. She went to a walk-in clinic and back wall through [facility] [place] who provided her with a knee immobilizer and instructed for orthopedic follow-up outpatient. [facility] Medical History Acquired hypothyroidism Annual visit for general adult medical examination with abnormal findings Anxiety and depression Chronic insomnia Dyslipidemia History of anemia Impaired fasting glucose Left knee pain Menopause, premature Mild intermittent asthma Vitamin D deficiency Surgical History H/O tubal ligation History of arthroplasty of left shoulder Hx of removal of cyst Family History Father Myocardial infarction, Onset Age: 65 Maternal Grandmother Breast cancer, Onset Age: 68 Social History Housing: House Alcohol intake: current Patient Tobacco Use Status: Former Tobacco user Quit Date: > 20 yr ago e-Cigarette/Vaping Use: Never Used Current occupational status: employed Current occupation: [employer]/ right hand dominant Cognitive needs: No Hearing needs: No Vision needs: Yes Review of Systems Const All systems reviewed & are unremarkable except as noted in HPI and below Physical Exam Vital Signs: BMI result Body Mass Index 30.1 Const General: cooperative, healthy appearing and no acute distress Resp Effort & Inspection: normal respiratory effort and able to speak in complete sentences Cardio Rate: regular rate Peripheral pulses: Peripheral pulses 2+ throughout GI Palpation (GI): Soft to palpation Skin Lesions: no lesions Rashes: no rashes Extrem Other: Right knee normal to inpection no ecchymosis erythema or joint effusion. Tenderness to palpation medial joint line. + Steinmen's medial joint line. NVI. Assessment & Plan Assessment & Plan (1) Acute medial meniscus tear of right knee: Code(s): S83.241A - Other tear of medial meniscus, current injury, right knee, initial encounter Plan: Ms. Jiménez is a 57-year-old female who presents the office today for evaluation of right knee pain. She reports that the knee pain began in August and has progressively gotten worse. She has tried naproxen with no relief. She went to a walk-in clinic and back wall through [facility] [place] who provided her with a knee immobilizer and instructed for orthopedic follow-up outpatient. X-rays obtained in the office today are negative for any acute fracture dislocation. I have requested an urgent MRI of the right knee to further evaluate the integrity of the meniscus in surrounding structures. She should discontinue the knee immobilizer. She will follow-up with me after MRI sooner if needed Orders: Orders XR knee RT 2V Today M25.569 - Pain in unspecified knee XR knee standing BI Today M25.569 - Pain in unspecified knee MR knee RT wo con Today S83.241A - Other tear of medial meniscus, current injury, right knee, initial encounter Coding Level of Care Code Est Pt Level 4 (31901) Diagnoses Acute medial meniscus tear of right knee S83.241A
[2022-11-03 08:32] VITALS: BMI 30.1
== END 2022-11-03 08:43 | disposition home or self-care (01) ==
PROVIDERS: PCP Internal Medicine; Visit Provider Physician Assistant
DX: S83.241A Other tear of medial meniscus, current injury, right knee, initial encounter (principal)
CPT/HCPCS: 99214

== ENCOUNTER 2022-11-03 15:34 | Outpatient (REF) | payer OTHER, SELFPAY ==
--- NOTE | ~2022-11-03 | XR_ITS ---
EXAMINATION: XR KNEE AP STANDING CLINICAL INFORMATION: Pain in unspecified knee COMPARISON: None available. TECHNIQUE: AP bilateral standing view of the knees was obtained. FINDINGS: No fracture or dislocation seen. There is slight narrowing in the medial joint space compartments. No osteochondral lesions or erosions. XR/XR knee standing BI IMPRESSION: Slight narrowing in the medial joint space compartments bilaterally. No bony fracture or erosive process.
--- NOTE | ~2022-11-03 | XR_ITS ---
EXAMINATION: XR KNEE, RIGHT CLINICAL INFORMATION: Pain in unspecified knee COMPARISON: Bilateral standing knee examination performed today. TECHNIQUE: Lateral and sunrise views of the right knee. FINDINGS: No acute fracture or dislocation seen. There is no significant joint effusion. The patellofemoral joint space is maintained. No erosive process. XR/XR knee RT 2V IMPRESSION: No acute process observed on the 2 submitted right knee views.
== END 2022-11-03 15:35 | disposition home or self-care (01) ==
LOC: HO.HOSX 15:34
PROVIDERS: Visit Provider Physician Assistant
DX: S83.241A Other tear of medial meniscus, current injury, right knee, initial encounter (principal)
CPT/HCPCS: 73560; 73565

== ENCOUNTER 2022-11-24 09:03 | Outpatient (AMB) | payer OTHER, SELFPAY ==
--- NOTE | 2022-11-24 09:15 | MHC.PC.OV ---
Vital Signs 11/24/22 09:21 Height 4 ft 11 in Weight 152 lb BMI 30.7 BP 116/70 Blood Pressure Location Rt brachial Position Sitting Pulse 63 Pulse Source Pulse Oximeter Pulse Oximetry (%) 99 Oxygen Delivery Method Room Air Intake Visit Reasons: 4 week fu Intake Note: Pt is here today for her 4 wks f/u depression and anxiety Allergies No Known Allergies [No Known Allergies*] Allergy (Verified 11/24/22 09:42) Medication List - Last Reconciled 11/24/22 by Kerry Martínez MD buspirone 5 mg PO BID buspirone 10 mg PO BID zolpidem ER 6.25 mg PO BEDTIME PRN Tobacco use date assessed: 11/24/22 Dental Screening Dental Screen Date: 11/24/22 Did you have a dental visit in the last 12 months?: No Was dental information given to patient?: Patient has dentist HPI 4 week fu HPI Details 57-year-old lady with anxiety and depression, here today for follow-up. She was started on buspirone 5 mg taken 1 tablet twice a day, which she states does not seem to be helping. Still having a lot of anxiety attacks, and this all started after the of her in October of 2020 . She does not want to see a therapist, has tried in the past and did not find it very helpful. She had recent fasting labs done which showed fasting glucose within normal limits, with a hemoglobin A1c at 5.3%, but LDL cholesterol is higher at 143 mg/dL. Her TSH is within normal limits. [facility] Medical History (Updated 11/24/22 @ 09:55 by Kerry Martínez MD) Acquired hypothyroidism Annual visit for general adult medical examination with abnormal findings Anxiety and depression Chronic insomnia Dyslipidemia History of anemia Impaired fasting glucose Left knee pain Menopause, premature Mild intermittent asthma Vitamin D deficiency Surgical History H/O tubal ligation History of arthroplasty of left shoulder Hx of removal of cyst Family History Father Myocardial infarction, Onset Age: 65 Maternal Grandmother Breast cancer, Onset Age: 68 Social History Housing: House Alcohol intake: current Patient Tobacco Use Status: Former Tobacco user Quit Date: > 20 yr ago e-Cigarette/Vaping Use: Never Used Current occupational status: employed 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 1. Little interest or pleasure in doing things: several days 2. Feeling down, depressed, or hopeless: more than half the days 3. Trouble falling or staying asleep, or sleeping too much: more than half the days 4. Feeling tired or having little energy: several days 5. Poor appetite or overeating: more than half the days 6. Feeling bad about yourself - or that you are a failure or have let yourself or your family down: more than half the days 7. Trouble concentrating on things, such as reading the newspaper or watching television: several days 8. Moving or speaking so slowly that other people could have noticed. Or the opposite - being so fidgety or restless that you have been moving around a lot more than usual: several days 9. Thoughts that you would be better off or of hurting yourself in some way: not at all Total score: 12 Depression Screening Interpretation: Positive Depression Screening Follow-up: Existing condition, In treatment and Change in Medication 11869 - PHQ-9 Billing: Yes Source: Developed by Drs. Sabino Peace, Jacey Mejia, Rafi Crystal and colleagues, with an educational fareed from [employer]. Thrive Questionnaire Date Thrive assessed: 10/20/22 TELLY-7 AMB Questionnaire TELLY-7 Date TELLY - 7 assessed: 11/24/22 Feeling nervous, anxious, or on edge: 2 = More than half the days Not being able to stop or control worryin = More than half the days Worrying too much about different things: 2 = More than half the days Trouble relaxin = More than half the days Being so restless that it is hard to sit still: 1 = Several days Becoming easily annoyed or irritable: 2 = More than half the days Feeling afraid as if something awful might happen: 2 = More than half the days Total TELLY-7 score (0-4 normal; 5-9 mild; 10-14 moderate; 15-21 severe): 13 Source: Developed by Drs. Sabino Peace, Jacey Mejia, Rafi Crystal and colleagues, with an educational fareed from [employer]. TELLY-7 Assessment Billing TELLY-7 Assessment Tool: TELLY-7 Assessment 88798 Review of Systems Const Denies body aches, Denies headache(s) and Denies weakness Eyes Details: Goes to [facility] for her routine eye exam Denies change in vision ENT Denies dizziness, Denies headache(s) and Denies nasal congestion Card Denies chest pain, Denies lightheadedness and Denies dyspnea Resp Denies chest congestion, Denies cough, Denies dyspnea and Denies wheezing GI Denies abdominal pain, Denies change in bowel habits and Denies heartburn Neuro Denies dizziness, Denies headache(s) and Denies weakness Psych Reports as per HPI Endo Reports no additional complaints Adarsh/Lymph Denies easy bruising Aller/Immun Denies seasonal rhinorrhea and Denies wheezing Physical exam (Primary Care) Vital Signs: Last Vital Signs Pulse 63 11/24/22 09:21 BP 116/70 11/24/22 09:21 Pulse Ox 99 11/24/22 09:21 Oxygen Delivery Method Room Air 11/24/22 09:21 BMI result Body Mass Index 30.7 Tobacco/Smoking Status: Tobacco use Status Tobacco use date assessed 11/24/22 11/24/22 09:24 Patient Tobacco Use Status Former Tobacco user 11/24/22 09:16 e-Cigarette/Vaping Use Never Used 11/24/22 09:16 Depression Screening Interpretation: Positive Depression Screening Follow-up: Existing condition, In treatment and Change in Medication Thrive Assessment: Date of Thrive Assessment Date Thrive assessed 10/20/22 11/24/22 09:16 Const General: comfortable, no acute distress and alert Orientation/consciousness: patient oriented x3 Eyes General: appearance normal, both eyes and all related structures Neck Neck: Yes full ROM, Yes no lymphadenopathy and Yes supple Chest Breast/axilla palpation: normal palpation of the breasts Resp Effort & Inspection: normal respiratory effort and able to speak in complete sentences Auscultation: clear to auscultation bilaterally Cardio Rate: regular rate Rhythm: regular rhythm Heart sounds: S1 normal heart sound present and S2 normal heart sound present Skin General skin exam: no rashes or lesions noted Neuro General: patient oriented x3, gait normal, tone normal, moves all extremities, Normal light touch and pain sensation and no focal motor deficits Cognition (Neuro): normal cognition Psych Appearance: grossly normal and well kempt Mental Status: mental status grossly normal Speech and movement: Normal speech and movement present Affect: Sad affect present Attitude: cooperative Thought process: Normal thought process present Thought content: Normal thought content present Assessment and Plan Assessment & Plan (1) Anxiety and depression: Code(s): F41.9 - Anxiety disorder, unspecified; F32.A - Depression, unspecified Plan: Will increase dose of buspirone to 10 mg per tablet taken 1 tablet twice a day. Declines refer for therapy, declined referral for counseling. Discussed other ways to relieve stress including : exercise or a massage, Get enough rest, Avoid alcohol, caffeine, nicotine, and illegal drugs which can increase your anxiety level and cause sleep problems. (2) Dyslipidemia: Comment: borderline- no meds Code(s): E78.5 - Hyperlipidemia, unspecified Plan: Reviewed recent fasting lipid profile with patient with higher LDL cholesterol levels. Stressed importance of adhering to a low-cholesterol diet and regular exercise, at least 30 minutes 3 to 4 times a week. Advised patient to make healthy food choices, eat more fruits, vegetables, whole grains, wild caught fish and low-fat dairy. Limit amount of meat and fried or fatty food products, as well as processed foods and fast foods. (3) Impaired fasting glucose: Code(s): R73.01 - Impaired fasting glucose Plan: Your fasting blood sugars in the past was elevated above 100 mg/dL. Latest fasting blood sugar within normal limits with a hemoglobin A1c at 5.3%. Impaired glucose metabolism makes you at risk for developing diabetes mellitus type 2, as well as heart attack and stroke later on. Lifestyle changes at just weight loss, healthy eating habits, and regular exercise are important, and can prevent the progression to diabetes (4) Chronic insomnia: Code(s): F51.04 - Psychophysiologic insomnia Plan: Continue zolpidem ER 6.25 mg at bedtime as needed for difficulty sleeping (5) Acquired hypothyroidism: Comment: Thyroid levels within normal limits Code(s): E03.9 - Hypothyroidism, unspecified Plan: TSH within normal limits, patient without symptoms, will monitor thyroid lobe Medications: New buspirone 10 mg PO BID 60 tabs 1RF Coding Level of Care Code Est Pt Level 4 (15501) Diagnoses Anxiety and depression F41.9; F32.A Dyslipidemia E78.5 Impaired fasting glucose R73.01 Chronic insomnia F51.04 Acquired hypothyroidism E03.9 Additional Codes TELLY-7 Assessment Billing - TELLY-7 Assessment Tool: TELLY-7 Assessment 51327 ([id number])
[2022-11-24 09:21] VITALS: BP 116/70; PULSE 63; O2SAT 99; BMI 30.7
== END 2022-11-24 09:55 | disposition home or self-care (01) ==
PROVIDERS: PCP Internal Medicine; Visit Provider Internal Medicine
DX: E03.9 Hypothyroidism, unspecified (principal); F41.9 Anxiety disorder, unspecified; F32.A Depression, unspecified; E78.5 Hyperlipidemia, unspecified; R73.01 Impaired fasting glucose; F51.04 Psychophysiologic insomnia
CPT/HCPCS: 99214

== ENCOUNTER 2022-12-14 07:17 | Outpatient (REF) | payer OTHER, SELFPAY ==
--- NOTE | ~2022-12-14 | MR_ITS ---
EXAMINATION: MR KNEE WITHOUT CONTRAST, RIGHT CLINICAL INFORMATION: Right knee pain and swelling. Difficulty walking and weight-bearing. COMPARISON: Right knee radiographs dated 11/03/2022. TECHNIQUE: MRI of the knee without contrast was performed using routine sequences on a high-field scanner. FINDINGS: MENISCI: Medial Meniscus: Oblique inner margin radial tear of the posterior horn measuring up to 0.4 cm in ML dimension. Medial extrusion of the meniscal body with degenerative intrasubstance signal. Adjacent soft tissue edema. Small parameniscal cysts adjacent to the posterior root measuring up to 0.7 cm. Lateral Meniscus: Intact LIGAMENTS: Cruciate: Intact Collateral: Mild edema adjacent to the posterior aspect of the medial collateral ligament which may be related to a meniscal tear or indicate an acute grade 1 sprain/partial tear. Intact fibular collateral ligament. EXTENSOR MECHANISM: Intact ARTICULAR CARTILAGE/BONE: Patellofemoral Compartment: Patellar median ridge articular cartilage signal heterogeneity with full-thickness fissuring and mild subchondral cystic change. Inferior medial trochlea articular cartilage thinning. Tiny marginal osteophytes. Medial Compartment: Intact articular cartilage. Lateral Compartment: Intact articular cartilage. JOINT FLUID AND BURSAE: Small joint effusion and trace Amor's cyst. MR/MR knee RT wo con IMPRESSION: Oblique inner margin radial tear of the medial meniscus posterior horn measuring 0.4 cm in ML dimension. Medial extrusion of the meniscal body with degenerative intrasubstance signal. Small parameniscal cyst adjacent to the posterior root measuring up to 0.7 cm. Edema adjacent to the posterior aspect of the medial collateral ligament which may be related to a meniscal tear or indicate an acute grade 1 sprain/partial tear. Mild patellofemoral osteoarthritis. Small joint effusion and trace Amor's cyst.
== END 2022-12-14 07:18 | disposition home or self-care (01) ==
LOC: HO.MRI 07:17
PROVIDERS: PCP Internal Medicine; Visit Provider Physician Assistant
DX: S83.241A Other tear of medial meniscus, current injury, right knee, initial encounter (principal); X58.XXXA Exposure to other specified factors, initial encounter; Y93.9 Activity, unspecified; Y92.9 Unspecified place or not applicable; Y99.9 Unspecified external cause status
CPT/HCPCS: 73721

== ENCOUNTER 2022-12-18 10:33 | Outpatient (AMB) | payer OTHER, SELFPAY ==
--- NOTE | 2022-12-18 09:43 | MHC.OFFVIS ---
Intake Vital Signs 12/18/22 10:36 Height 4 ft 11 in Weight 152 lb BMI 30.7 Intake Visit Reasons: ov- ACUTE MEDIAL MENISCUS TEAR Intake Note: Rebeca is a 57 year old female who presents today for a right knee MRI Review. MRI done @ [facility] 12/14/22. Patient reports that the knee is feeling about the same and she is ambulating with a limp Allergies No Known Allergies [No Known Allergies*] Allergy (Verified 12/23/22 14:20) HPI ov- ACUTE MEDIAL MENISCUS TEAR HPI Details Rebeca is a 57 year old woman who presents for an MRI review of her right knee pain. She complains of pain with daily activity, worse with twisting activity Her pain began in August and has been worsening since. She found no relief from NSAIDs or a knee immobilizer. [facility] Medical History (Updated 12/24/22 @ 02:59 by Kerry Martínez MD) Right medial knee pain Anxiety and depression Annual visit for general adult medical examination with abnormal findings Chronic insomnia Dyslipidemia Impaired fasting glucose History of anemia Vitamin D deficiency Menopause, premature Mild intermittent asthma Acquired hypothyroidism Surgical History (Updated 12/24/22 @ 02:50 by Kerry Martínez MD) History of arthroplasty of right shoulder Hx of removal of cyst H/O tubal ligation Family History Father Myocardial infarction, Onset Age: 65 Maternal Grandmother Breast cancer, Onset Age: 68 Social History Housing: House Alcohol intake: current Patient Tobacco Use Status: Former Tobacco user Quit Date: > 20 yr ago e-Cigarette/Vaping Use: Never Used Current occupational status: employed 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 Cognitive needs: No Hearing needs: No Vision needs: Yes Review of Systems Const All systems reviewed & are unremarkable except as noted in HPI and below Physical Exam Vital Signs: BMI result Body Mass Index 30.7 Const General: no acute distress, alert and awake Orientation/consciousness: patient oriented x3 HEENT Head: Yes normocephalic and Yes atraumatic Eyes EOM: EOMs intact bilaterally Resp Effort & Inspection: normal respiratory effort and able to speak in complete sentences Cardio Jugular venous distension: no JVD Skin General skin exam: turgor normal Rashes: no rashes Neuro General: patient oriented x3 Extrem Other: Right Knee: Medial joint line ttp + medial Steinmen's Psych Appearance: grossly normal Affect: normal affect Attitude: cooperative Results Reviewed Results Reviewed: I personally reviewed the MR images. Medial meniscus radial tear of the body of the medial meniscus Assessment & Plan Assessment & Plan (1) Acute medial meniscus tear of right knee: Code(s): S83.241A - Other tear of medial meniscus, current injury, right knee, initial encounter Plan: This is a 57 year old woman with right knee medial meniscus tear & ~3 months of worsening pain. She has pain with twisting and it is not improving. She found no relief from NSAIDs/injections.. I discussed her diagnosis and treatment options. I recommend knee . I discussed the risks benefits and alternatives including but not limited to the risk of pain, infection, stiffness, need for further surgery as well as potential medical complications. She expressed understanding and we will proceed forward accordingly Coding Level of Care Code Est Pt Level 4 (75317) Diagnoses Acute medial meniscus tear of right knee S83.241A
[2022-12-18 10:36] VITALS: BMI 30.7
== END 2022-12-18 10:53 | disposition home or self-care (01) ==
PROVIDERS: PCP Internal Medicine; Visit Provider Orthopaedic Surgery
DX: S83.231A Complex tear of medial meniscus, current injury, right knee, initial encounter (principal)
CPT/HCPCS: 99214

== ENCOUNTER → 2022-12-18 10:33 | Outpatient (BNVA) | payer OTHER, SELFPAY | PROVIDERS: PCP Internal Medicine; Visit Provider Orthopaedic Surgery ==

== ENCOUNTER 2022-12-23 13:25 | Outpatient (AMB) | payer OTHER, SELFPAY ==
--- NOTE | 2022-12-23 13:17 | MHC.PC.OV ---
Intake Visit Reasons: 4 week fu Intake Note: f/u on medication [employer] Required: No Allergies No Known Allergies [No Known Allergies*] Allergy (Verified 12/23/22 14:20) Medication List - Last Reconciled 12/23/22 by Kerry Martínez MD buspirone 10 mg PO BID zolpidem ER 6.25 mg PO BEDTIME PRN Tobacco use date assessed: 11/24/22 Dental Screening Dental Screen Date: 12/23/22 Did you have a dental visit in the last 12 months?: Yes Did you have a dental problem in the last 6 months where you did not have access to dental care?: No Was dental information given to patient?: Patient has dentist HPI 4 week fu HPI Details 57-year-old lady here today for follow-up on her anxiety. Was started on buspirone 10 mg taken twice a day morning and evening. Patient states that for the 1st couple of days, she started having some nausea and irregular bowel habits, which has now resolved. States that she is feeling better , no depression and less anxiety attacks on higher dose of buspirone. Still having difficulty initiating and maintaining sleep on zolpidem 6.25 mg extended release tablets, would like to try higher dose.. [facility] Medical History (Updated 12/23/22 @ 14:30 by Kerry Martínez MD) Left knee pain Anxiety and depression Annual visit for general adult medical examination with abnormal findings Chronic insomnia Dyslipidemia Impaired fasting glucose History of anemia Vitamin D deficiency Menopause, premature Mild intermittent asthma Acquired hypothyroidism Surgical History History of arthroplasty of left shoulder Hx of removal of cyst H/O tubal ligation Family History Father Myocardial infarction, Onset Age: 65 Maternal Grandmother Breast cancer, Onset Age: 68 Social History Housing: House Alcohol intake: current Patient Tobacco Use Status: Former Tobacco user Quit Date: > 20 yr ago e-Cigarette/Vaping Use: Never Used Current occupational status: employed Current occupation: [employer]/ right hand dominant Cognitive needs: No Hearing needs: No Vision needs: Yes Questionnaire Thrive Questionnaire Date Thrive assessed: 10/20/22 I am a: Patient What is your living situation today?: I have a steady place to live Within the past 12 months, did the food you bought not last and you didn't have the money to get more?: Never true Within the past 12 months, did you worry whether your food would run out before you got money to buy more?: Never true Please select the resources that you would like help with: None AUDIT C Alcohol Use Questionnaire (AUDIT-C) 1. How often do you have a drink containing alcohol?: 2-3 times a week 2. How many drinks containing alcohol do you have on a typical day when you are drinking?: 3 or 4 3. How often do you have six or more drinks on one occasion?: Never Total Score: 4 TELLY-7 AMB Questionnaire TELLY-7 Date TELLY - 7 assessed: 12/23/22 Feeling nervous, anxious, or on edge: 1 = Several days Not being able to stop or control worryin = Not at all Worrying too much about different things: 0 = Not at all Trouble relaxin = Not at all Being so restless that it is hard to sit still: 0 = Not at all Becoming easily annoyed or irritable: 0 = Not at all Feeling afraid as if something awful might happen: 0 = Not at all Total TELLY-7 score (0-4 normal; 5-9 mild; 10-14 moderate; 15-21 severe): 1 Source: Developed by Drs. Sabino Peace, Jacey Mejia, Rafi Crystal and colleagues, with an educational fareed from [employer]. TELLY-7 Assessment Billing TELLY-7 Assessment Tool: TELLY-7 Assessment 46176 Review of Systems Const Reports as per HPI, Denies headache(s), Denies malaise, Denies poor appetite and Denies weakness Eyes Details: Goes to [facility] for her routine eye exam Denies change in vision ENT Denies dizziness, Denies headache(s) and Denies nasal congestion Card Denies chest pain, Denies lightheadedness and Denies dyspnea Resp Denies chest congestion, Denies cough, Denies dyspnea and Denies wheezing GI Reports as per HPI, Denies abdominal pain, Denies change in bowel habits and Denies heartburn Neuro Denies dizziness, Denies headache(s) and Denies weakness Psych Reports as per HPI Endo Reports no additional complaints Aller/Immun Denies seasonal rhinorrhea and Denies wheezing Physical exam (Primary Care) Tobacco/Smoking Status: Tobacco use Status Tobacco use date assessed 11/24/22 12/23/22 13:19 Patient Tobacco Use Status Former Tobacco user 12/23/22 13:19 e-Cigarette/Vaping Use Never Used 12/23/22 13:19 Thrive Assessment: Date of Thrive Assessment Date Thrive assessed 10/20/22 12/23/22 13:19 Telehealth Telehealth Location of provider rendering services: practice address Location of patient: address on file Patient Identification confirmed using: Name, : Yes Telehealth method: video Patient verbally consented to treatment: Yes Patient verbally consented to billing insurance company: Yes Patient informed of any privacy concerns related to visit: Yes Minutes spent on Phone/Video with Pt.: 15 Assessment and Plan Assessment & Plan (1) Anxiety and depression: Code(s): F41.9 - Anxiety disorder, unspecified; F32.A - Depression, unspecified Plan: Doing better on buspirone 10 mg taken 1 tablet twice a day. Will continue on current dose. Refill sent for 90 days to to [facility] (2) Chronic insomnia: Code(s): F51.04 - Psychophysiologic insomnia Plan: Will increase dose of zolpidem ER to 12.5 mg per tablet to take 1 tablet once a day as needed for difficulty with sleeping, advised to take it only as needed, try not to take it on a regular basis. Medications: Changed From buspirone 10 mg PO BID 60 tabs 1RF F32.A - Depression, unspecified, F41.9 - Anxiety disorder, unspecified To buspirone 10 mg PO BID 3 months 180 tabs 2RF F32.A - Depression, unspecified, F41.9 - Anxiety disorder, unspecified From zolpidem ER 6.25 mg PO BEDTIME PRN 30 tabs 0RF sleep F51.04 - Psychophysiologic insomnia To zolpidem ER 12.5 mg PO BEDTIME PRN 30 tabs 0RF sleep F51.04 - Psychophysiologic insomnia Coding Level of Care Code Tele Est Pt Level 3 (02576) Diagnoses Anxiety and depression F41.9; F32.A Chronic insomnia F51.04 Additional Codes TELLY-7 Assessment Billing - TELLY-7 Assessment Tool: TELLY-7 Assessment 13309 ([id number])
== END 2022-12-23 15:09 | disposition home or self-care (01) ==
LOC: HO.HMGC 13:25
PROVIDERS: PCP Internal Medicine; Visit Provider Internal Medicine
DX: F41.9 Anxiety disorder, unspecified (principal); F32.A Depression, unspecified; F51.04 Psychophysiologic insomnia
CPT/HCPCS: 99213

== ENCOUNTER 2023-01-06 10:25 | Day surgery (SDC) | payer OTHER, SELFPAY ==
[2022-12-31 13:39] VITALS: BMI 30.7
[2022-12-31 14:16] VITALS: BMI 30.7
--- NOTE | 2023-01-05 08:54 | HO.ANESPROP2 ---
Documented by User: Latonia Vang NP 01/05/23 09:05 HPI - Anesthesia Eval Consult details Narrative: 57yo F for Right Knee Arthroscopy s/p shoulder arthroscopy 01/2022 with GA-ETT 7 and block PMFSH Active Problems Active Problems: All Active Problems (Updated 12/31/22 @ 14:15 by Esther Goodman, SENDY) Acute medial meniscus tear of right knee (Acute) Right medial knee pain (Acute) Anxiety and depression (Acute) Chronic insomnia (Acute) Dyslipidemia (Acute) Impaired fasting glucose (Acute) Menopause, premature (Acute) Mild intermittent asthma (Acute) Acquired hypothyroidism (Acute) Past Medical History Medical History Asthma Insomnia Low back pain Right medial knee pain Anxiety and depression Annual visit for general adult medical examination with abnormal findings Chronic insomnia Dyslipidemia Impaired fasting glucose History of anemia Vitamin D deficiency Menopause, premature Mild intermittent asthma Acquired hypothyroidism Family History Family History Father Myocardial infarction, Onset Age: 65 Maternal Grandmother Breast cancer, Onset Age: 68 Family history of problems with anesthesia: No Surgical History Surgical History S/P LASIK surgery of both eyes Hx of shoulder surgery Hx of shoulder surgery History of arthroplasty of right shoulder Hx of removal of cyst H/O tubal ligation History of Problems with Anesthesia: No Social History Social History Household Members: Spouse Housing: House Are you a primary respiratory care technician to a significant other at home: No Do you presently have visiting nurse or other home services: No (will be staying with in-laws post-op) Alcohol intake: current Patient Tobacco Use Status: Former Tobacco user Quit Date: 1999 Tobacco use type: Cigarette Smoked in Last 30 Days: No e-Cigarette/Vaping Use: Never Used Use of substances other than those prescribed or required for medical reasons: No Have you been hit, kicked, punched, or otherwise hurt by someone within the past year? 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 Cognitive needs: No Hearing needs: No Vision needs: Yes Meds Allergies Allergy/AdvReac Type Severity Reaction Status Date / Time No Known Allergies Allergy Verified 12/31/22 13:53 [No Known Allergies*] Exam Exam Date and Time: January 05, 2023 0854 Height,Weight and Vital Signs: Height 4 ft 11 in Weight 68.946 kg Assessment and Plan Assessment Anesthesia Assessment: Chart Reviewed Final Anesthetic Review Family History of Problems with Anesthesia: No History of Problems with Anesthesia: No Documented by User: Linh Meza MD 01/06/23 11:10 PMFSH Past Medical History Medical History Asthma Insomnia Low back pain Right medial knee pain Anxiety and depression Annual visit for general adult medical examination with abnormal findings Chronic insomnia Dyslipidemia Impaired fasting glucose History of anemia Vitamin D deficiency Menopause, premature Mild intermittent asthma Acquired hypothyroidism Family History Family History Father Myocardial infarction, Onset Age: 65 Maternal Grandmother Breast cancer, Onset Age: 68 Surgical History Surgical History S/P LASIK surgery of both eyes Hx of shoulder surgery Hx of shoulder surgery History of arthroplasty of right shoulder Hx of removal of cyst H/O tubal ligation Social History Social History Household Members: Spouse Housing: House Are you a primary respiratory care technician to a significant other at home: No Do you presently have visiting nurse or other home services: No (will be staying with in-laws post-op) Alcohol intake: current Patient Tobacco Use Status: Former Tobacco user Quit Date: 1999 Tobacco use type: Cigarette Smoked in Last 30 Days: No e-Cigarette/Vaping Use: Never Used Use of substances other than those prescribed or required for medical reasons: No Have you been hit, kicked, punched, or otherwise hurt by someone within the past year? 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 Cognitive needs: No Hearing needs: No Vision needs: Yes Meds Allergies Allergy/AdvReac Type Severity Reaction Status Date / Time No Known Allergies Allergy Verified 12/31/22 13:53 [No Known Allergies*] Exam Airway Mallampati Class: II TM Dist: >3cm Neck ROM: Full Heart: rrr Lungs: cta Assessment and Plan Assessment Anesthesia Assessment: Anesthesia Plan Discussed Final Anesthetic Review ASA Class: II Final Preanesthetic Review: No Changes in Pt Med Stat, Meds/Allgs Chart Reviewed, Consent Obtained/Reviewed and Anes Risks/Benef Reviewed Patient Risk: Low Procedure Risk: Low Anesthetic Plan Anesthetic Plan: GA Disposition: Standard PACU
[2023-01-06] VITALS (8 sets, daily range): BP systolic 129–152; BP diastolic 67–80; PULSE 71–86; RESP 16–18; TEMP 36.1–36.9; O2SAT 95–100
--- NOTE | 2023-01-06 15:11 | PM.OP ---
Brief Operative Note Date of Service: 01/06/23 Pre-op diagnosis: right knee mmt Post-op diagnosis: same Procedure: Right knee with partial MM Surgeon: Chandra Hatch MD Anesthesia: GETA and local Was an Aligner Barrel And Receiver used for this Procedure?: No Estimated blood loss (mL): 5 Tourniquet time (min): 10 Pathology: none sent Condition: stable Disposition: PACU
--- NOTE | 2023-01-19 12:50 | W.PM.OPN ---
Operative Note Operative Note Date of Service: 01/06/23 Narrative: Date of Service: 01/06/23 Pre-op diagnosis: right knee mmt Post-op diagnosis: same Procedure: Right knee with partial MM Surgeon: Chandra Hatch MD Anesthesia: GETA and local Was an Wheelchair Van Operator First Responder used for this Procedure?: No Estimated blood loss (mL): 5 Tourniquet time (min): 10 Pathology: none sent Condition: stable Disposition: PACU Patient was brought to the operating room placed supine on the arthroscopic table and prepped and draped in standard sterile fashion. A time-out was called to identify proper site proper procedure proper surgeon and IV antibiotics per weight were administered. I began by exsanguinating the limb and insufflating tourniquet to 300 mm Hg. Then made a standard anterolateral stab incision. The knee was insufflated with water and 30 degree arthroscope was placed. There was grade 1 fibrillations of the patella but overall suprapatellar pouch and the gutters were clean. I descended into the medial compartment where I made my medial portal under direct visualization. There was a complex tear of the posterior horn of the medial meniscus. The root was intact and there were minimal cartilage changes throughout the medial compartment. I used a combination of biter, shaver and cautery to remove unstable portions of the meniscus. Approximately 20% of the meniscal volume was removed. Once I was satisfied with this the ACL was examined and found to be intact and the lateral compartment also was without the need for intervention. I then removed all instrumentation and closed the portals with skin glue. 25 mL of 2% Marcaine with epinephrine was injected into the joint and the surrounding soft tissues. Patient was then placed in sterile dressing extubated brought recovery room stable condition. There were no known complications.
== END 2023-01-06 16:00 | disposition home or self-care (01) ==
LOC: HO.SSS 10:26
PROVIDERS: PCP Internal Medicine; Visit Provider Orthopaedic Surgery
PROC: (CPT 29870; principal; 2023-01-06 12:30)
DX: S83.241A Other tear of medial meniscus, current injury, right knee, initial encounter (principal); X58.XXXA Exposure to other specified factors, initial encounter; E78.5 Hyperlipidemia, unspecified; F51.04 Psychophysiologic insomnia; D64.9 Anemia, unspecified; E55.9 Vitamin D deficiency, unspecified; E03.9 Hypothyroidism, unspecified; J45.20 Mild intermittent asthma, uncomplicated; Z98.51 Tubal ligation status; Z87.891 Personal history of nicotine dependence; Y93.9 Activity, unspecified; Y92.9 Unspecified place or not applicable; Y99.9 Unspecified external cause status
CPT/HCPCS: 29881; J0131; J0171; J0690; J1100; J2405; J2795; J3010

== ENCOUNTER → 2023-01-06 10:25 | Outpatient (BNV) | payer OTHER, SELFPAY | PROVIDERS: PCP Internal Medicine; Visit Provider Orthopaedic Surgery | DX: S83.241A Other tear of medial meniscus, current injury, right knee, initial encounter (principal) | CPT/HCPCS: 29881 ==

== ENCOUNTER 2023-01-12 09:08 | Outpatient (AMB) | payer OTHER, SELFPAY ==
--- NOTE | 2023-01-12 09:14 | A.OFFVIS_ITS ---
Intake Intake Visit Reasons: PO RT knee 01/06/23NE Intake Note: Rebeca a 57 year old female presents today for a post operative right knee , DOS 01/06/23 NE. Patient reports she is doing well, mild pain. States pulling sensation in her calf. Allergies No Known Allergies [No Known Allergies*] Allergy (Verified 01/12/23 09:16) HPI PO RT knee 01/06/23NE HPI Details 57-year-old right hand dominant female carol everett presents in the office today 6 days status post right knee arthroscopy with partial medial menisectomy, which was performed on 01/06/[address] Hatch. The patient reports she is doing well with mild pain. She states she has a pulling sensation in her calf. [facility] Medical History Asthma Insomnia Low back pain Right medial knee pain Anxiety and depression Annual visit for general adult medical examination with abnormal findings Chronic insomnia Dyslipidemia Impaired fasting glucose History of anemia Vitamin D deficiency Menopause, premature Mild intermittent asthma Acquired hypothyroidism Surgical History S/P LASIK surgery of both eyes Hx of shoulder surgery Hx of shoulder surgery History of arthroplasty of right shoulder Hx of removal of cyst H/O tubal ligation Family History Father Myocardial infarction, Onset Age: 65 Maternal Grandmother Breast cancer, Onset Age: 68 Social History Household Members: Spouse Housing: House Are you a primary healthcare translator to a significant other at home: No Do you presently have visiting nurse or other home services: No (will be staying with in-laws post-op) Alcohol intake: current Patient Tobacco Use Status: Former Tobacco user Quit Date: 1999 Tobacco use type: Cigarette e-Cigarette/Vaping Use: Never Used Current occupational status: employed 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 Calf is supple and non- tender. Full ROM. NVI. Assessment & Plan Assessment & Plan (1) Acute medial meniscus tear of right knee: Code(s): S83.241A - Other tear of medial meniscus, current injury, right knee, initial encounter Qualifiers: Encounter type: subsequent encounter Qualified Code(s): S83.241D - Other tear of medial meniscus, current injury, right knee, subsequent encounter Plan Ms. Jiménez is a 57-year-old right hand dominant female who presents in the office today 6 days status post right knee arthroscopy with partial medial menisectomy, which was performed on 01/06/[address] Hatch. The patient reports she is doing well with mild pain. She states she has a pulling sensation in her calf. The patient presented to the office today still using the crutches. I did educate the patient that she does not need to use the crutches at this time unless she should have difficulty with stability. She is scheduled to work with physical therapy tomorrow. Follow up will be in 4 weeks, or sooner if needed. Patient Instructions: Scribed for Margo Lujan PA-C by Thuy Escobar manager medical, on 01/12/2023 at 9:18 am, EST. Coding Level of Care Code Global (09286) Diagnoses Acute medial meniscus tear of right knee, subsequent encounter S83.241D Encounter type: subsequent encounter
== END 2023-01-12 09:23 | disposition home or self-care (01) ==
PROVIDERS: PCP Internal Medicine; Visit Provider Physician Assistant
DX: S83.241D Other tear of medial meniscus, current injury, right knee, subsequent encounter (principal)
CPT/HCPCS: 99024

== ENCOUNTER → 2023-01-12 09:08 | Outpatient (BNVA) | payer OTHER, SELFPAY | PROVIDERS: PCP Internal Medicine; Visit Provider Physician Assistant ==

== ENCOUNTER 2023-02-24 08:00 | Outpatient (RCR) | payer OTHER, SELFPAY ==
--- NOTE | 2023-01-13 09:17 | MHC.PT.EP ---
[facility] [place] Office [place] Office [place] Office [address] [phone] F: [phone] F: [phone] F: [phone] F: [phone] Physical Therapy Plan of Care Date of Evaluation: 01/13/23 Date of Surgery: 01/06/23 Diagnosis: s/p medial meniscectomy Assessment: Patient is a 57 year old R handed female who presents with s/s consistent with R knee pain, R medial meniscectomy. 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 Patient past medical history includes shoulder surgery. Current impairments include pain, balance, gait mechanics, ROM, strength, activity tolerance and functional mobility. Functional limitations include decreased ability to walk, stand, negotiate stairs, sleep and perform weight bearing activities. Patient is motivated with good rehab potential. Skilled PT will address impairments and functional limitations in order to achieve goals. Frequency and Duration: The patient will be seen 1x/week for 6 weeks Short Term Goals: I with HEP - 2 weeks AROM flexion and extension 0-135 - 3 weeks Good quad set - 3 weeks Veneer Layer Goals: Knee strength 4+/5 grossly - 6 weeks LEFS 56/80 - 6 weeks Michelle gait mechanics - 4 weeks hip strength 4+/5 grossly - 5 weeks Treatment Plan: Modalities to reduce pain, spasms and effusion. Manual therapy to restore motion and function. Therapeutic exercise to improve strength and flexibility. Neuromuscular re-education for posture and balance. Therapeutic activities to return to functional activities of daily living. Electronically signed by: Reuben Fletcher, PT Please sign and return to therapist. Thank you for your referral.
--- NOTE | 2024-01-05 08:34 | MHC.PT.DC ---
[facility] [place] Office [place] Office [place] Office [address] David Madden [address] [phone] F: [phone] F: [phone] F: [phone] F: [phone] Physical Therapy Discharge Report Diagnosis: s/p medial meniscectomy Date of Surgery: 01/06/23 Date of Evaluation: 01/13/23 Date of Discharge: 03/11/23 Treatments to Date: 5 Cancellations to Date: No Shows to Date: Discharge Status: Independent with HEP Discharge Summary: 02/24/23: I with HEP. AROM 135. Strength 4+/5 grossly in knee and hip. LEFS 62/80. Still lacking a bit of flexion with swing in gait and we discussed this. Pt believes it is due to soreness from home lindy project. d/c to HEP at this time. 02/10/23: pt progressing well with skilled PT. improved quad strength. normal flexion. improved stair mechanics. d/c to HEP NV. 02/03/23: quad contraction improving. no adverse reactions. added TKE with good response. ROM is satisfactory. 01/27/23: pt has been progressing well with ROM. quad strength, set, contraction still reluctant. gait mechanics also antalgic reportedly from trick or treating. 01/20/23: pt progressing well with skilled PT. flexion to 138. swelling reduced. she notes some minor redness around surgical portal she is monitoring. Patient is a 57 year old R handed female who presents with s/s consistent with R knee pain, R medial meniscectomy. 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 Patient past medical history includes shoulder surgery. Current impairments include pain, balance, gait mechanics, ROM, strength, activity tolerance and functional mobility. Functional limitations include decreased ability to walk, stand, negotiate stairs, sleep and perform weight bearing activities. Patient is motivated with good rehab potential. Skilled PT will address impairments and functional limitations in order to achieve goals. Electronically signed by: Reuben Fletcher, PT Please sign and return to therapist. Thank you for your referral.
== END 2024-01-05 08:34 | disposition home or self-care (01) ==
LOC: HO.PTCHIC 08:00
PROVIDERS: PCP Internal Medicine; Visit Provider Physician Assistant
DX: S83.241A Other tear of medial meniscus, current injury, right knee, initial encounter (principal)
CPT/HCPCS: 97110; 97140; 97162

== ENCOUNTER 2023-06-21 10:47 | Outpatient (AMB) | payer OTHER, SELFPAY ==
--- NOTE | 2023-06-21 11:42 | A.OFFPC_ITS ---
Vital Signs 06/21/23 12:09 Height 4 ft 11 in Weight 146 lb BMI 29.5 BP 110/76 Blood Pressure Location Lt brachial Position Sitting Pulse 75 Pulse Source Pulse Oximeter Pulse Oximetry (%) 97 Oxygen Delivery Method Room Air Intake Visit Reasons: 6 Month follow up anxiety, depression and insomnia Intake Note: Pt is here today for her 6mo. f/u anxiety, depression and insomnia Allergies No Known Allergies [No Known Allergies*] Allergy (Verified 06/21/23 12:24) Medication List - Last Reconciled 06/21/23 by Kerry Martínez MD albuterol sulfate 90 mcg/actuation 2 inhalations inhalation Q8H PRN buspirone 10 mg PO BID 3 months zolpidem ER 12.5 mg PO BEDTIME PRN Tobacco use date assessed: 06/21/23 Dental Screening Dental Screen Date: 06/21/23 Did you have a dental visit in the last 12 months?: Yes Did you have a dental problem in the last 6 months where you did not have access to dental care?: Yes Was dental information given to patient?: Patient has dentist HPI 6 Month follow up anxiety, depression and insomnia HPI Details 57-year-old lady here today for follow-u p on her depression and anxiety. She is currently taking buspirone 5 mg per tablet taken 1 tablet twice a day, occasionally take another 5 mg during the middle of the day depending on her anxiety levels. Patient however states that medicine does not seem to be helping as much not [place] when she 1st started taking it . She also has chronic insomnia, has to take a zolpidem ER 12.5 mg daily to help her sleep at night. However, she does not sleep through the night and wakes up 3-4 times at night and unable to go back to a restful sleep. Wakes up tired during the day due to lack of sleep. States that she is unable to stop worrying at night before going to sleep [facility] Medical History (Updated 06/21/23 @ 14:09 by Kerry Martínez MD) Asthma Insomnia Low back pain Right medial knee pain Anxiety and depression Annual visit for general adult medical examination with abnormal findings Chronic insomnia Dyslipidemia Impaired fasting glucose History of anemia Vitamin D deficiency Menopause, premature Mild intermittent asthma Acquired hypothyroidism Surgical History S/P LASIK surgery of both eyes Hx of shoulder surgery Hx of shoulder surgery History of arthroplasty of right shoulder Hx of removal of cyst H/O tubal ligation Family History Father Myocardial infarction, Onset Age: 65 Maternal Grandmother Breast cancer, Onset Age: 68 Social History Household Members: Spouse Housing: House Are you a primary senior care provider to a significant other at home: No Do you presently have visiting nurse or other home services: No (will be staying with in-laws post-op) Alcohol intake: current Comment: aware of trip hazard Patient Tobacco Use Status: Former Tobacco user Quit Date: 1999 Tobacco use type: Cigarette e-Cigarette/Vaping Use: Never Used Current occupational status: employed 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 1. Little interest or pleasure in doing things: more than half the days 2. Feeling down, depressed, or hopeless: several days 3. Trouble falling or staying asleep, or sleeping too much: nearly every day 4. Feeling tired or having little energy: several days 5. Poor appetite or overeating: more than half the days 6. Feeling bad about yourself - or that you are a failure or have let yourself or your family down: several days 7. Trouble concentrating on things, such as reading the newspaper or watching television: several days 8. Moving or speaking so slowly that other people could have noticed. Or the opposite - being so fidgety or restless that you have been moving around a lot more than usual: not at all 9. Thoughts that you would be better off or of hurting yourself in some way: not at all Total score: 11 Depression Screening Interpretation: Positive Depression Screening Follow-up: Existing condition, In treatment, Change in Medication and Follow-up Visit Requested Depression Screening Done: Yes 51883 - PHQ-9 Billing: Yes Source: Developed by Drs. Sabino Peace, Jacey Mejia, Rafi Crystal and colleagues, with an educational fareed from [employer]. Thrive Questionnaire Date Thrive assessed: 06/21/23 I am a: Patient What is your living situation today?: I have a steady place to live Within the past 12 months, did the food you bought not last and you didn't have the money to get more?: Never true Within the past 12 months, did you worry whether your food would run out before you got money to buy more?: I choose not to answer this question Do you have trouble paying for medicines?: No Do you have trouble getting transportation to medical appointments?: No Do you have trouble paying your heating and electricity bill?: No Do you have trouble taking care of your child, family member or friend?: No Do you have trouble with day-to-day activities such as bathing, preparing meals, shopping, managing finances, etc.?: No Are you currently unemployed and looking for a job?: No Are you interested in more education?: No THRIVE Score: 0 AUDIT C Alcohol Use Questionnaire (AUDIT-C) 1. How often do you have a drink containing alcohol?: 2-3 times a week 2. How many drinks containing alcohol do you have on a typical day when you are drinking?: 1 or 2 3. How often do you have six or more drinks on one occasion?: Less than monthly Total Score: 4 TELLY-7 AMB Questionnaire TELLY-7 Date TELLY - 7 assessed: 06/21/23 Feeling nervous, anxious, or on edge: 1 = Several days Not being able to stop or control worryin = More than half the days Worrying too much about different things: 2 = More than half the days Trouble relaxin = More than half the days Being so restless that it is hard to sit still: 1 = Several days Becoming easily annoyed or irritable: 1 = Several days Feeling afraid as if something awful might happen: 2 = More than half the days Total TELLY-7 score (0-4 normal; 5-9 mild; 10-14 moderate; 15-21 severe): 11 Source: Developed by Drs. Sabino Peace, Jacey Mejia, Rafi Crystal and colleagues, with an educational fareed from [employer]. TELLY-7 Assessment Billing TELLY-7 Assessment Tool: TELLY-7 Assessment 98834 Review of Systems Const Denies headache(s), Denies malaise, Denies poor appetite and Denies weakness ENT Denies dizziness, Denies headache(s) and Denies nasal congestion Card Denies chest pain, Denies lightheadedness and Denies dyspnea Resp Denies chest congestion, Denies cough and Denies dyspnea GI Denies abdominal pain, Denies change in bowel habits and Denies heartburn Neuro Denies dizziness, Denies headache(s) and Denies weakness Psych Reports as per HPI Physical exam (Primary Care) Vital Signs: Last Vital Signs Pulse 75 06/21/23 12:09 BP 110/76 06/21/23 12:09 Pulse Ox 97 06/21/23 12:09 Oxygen Delivery Method Room Air 06/21/23 12:09 BMI result Body Mass Index 29.5 Tobacco/Smoking Status: Tobacco use Status Tobacco use date assessed 06/21/23 06/21/23 12:13 Patient Tobacco Use Status Former Tobacco user 06/21/23 11:44 Tobacco use type Cigarette 06/21/23 11:44 e-Cigarette/Vaping Use Never Used 06/21/23 11:44 PHQ-9: PHQ-9 Score PHQ-9: Total score 11 06/21/23 12:29 Depression Screening Interpretation: Positive Depression Screening Follow-up: Existing condition, In treatment, Change in Medication and Follow-up Visit Requested Thrive Assessment: Date of Thrive Assessment Date Thrive assessed 06/21/23 06/21/23 11:44 Const General: comfortable, no acute distress and alert Orientation/consciousness: patient oriented x3 Neck Neck: Yes full ROM, Yes no lymphadenopathy and Yes supple Resp Effort & Inspection: normal respiratory effort and able to speak in complete sentences Auscultation: clear to auscultation bilaterally Cardio Rate: regular rate Rhythm: regular rhythm Heart sounds: S1 normal heart sound present and S2 normal heart sound present Neuro General: patient oriented x3, gait normal, tone normal, moves all extremities, Normal light touch and pain sensation and no focal motor deficits Cognition (Neuro): normal cognition Psych Appearance: grossly normal and well kempt Mental Status: mental status grossly normal Speech and movement: Normal speech and movement present Affect: Sad affect present Attitude: cooperative Thought process: Normal thought process present Thought content: Normal thought content present Assessment and Plan Assessment & Plan (1) Anxiety and depression: Code(s): F41.9 - Anxiety disorder, unspecified; F32.A - Depression, unspecified Plan: Advised to increased buspirone dose to 15 mg twice a day and may still take an additional dose of 15 mg during the middle of the day as needed, she can decrease her dose and dosing frequency depending on how she is feeling.. Call in 4 weeks if no improvement of symptoms (2) Chronic insomnia: Code(s): F51.04 - Psychophysiologic insomnia Plan: Stop zolpidem ER, prescription was sent for trazodone 50 mg per tablet, to initially try taking 50 mg at bedtime, may increase it to 75 mg or 1 and half tablets once a day when the 2nd week and may go up to 100 mg at bedtime as needed for chronic insomnia. Orders: Orders Lipid Panel 09/27/23 E28.319 - Asymptomatic premature menopause, E78.5 - Hyperlipidemia, unspecified, F32.A - Depression, unspecified, F41.9 - Anxiety disorder, unspecified, F51.04 - Psychophysiologic insomnia, R73.01 - Impaired fasting glucose Basic Metabolic Panel Fasting 09/27/23 E28.319 - Asymptomatic premature menopause, E78.5 - Hyperlipidemia, unspecified, F32.A - Depression, unspecified, F41.9 - Anxiety disorder, unspecified, F51.04 - Psychophysiologic insomnia, R73.01 - Impaired fasting glucose Aspartate Amino Transferase 09/27/23 E28.319 - Asymptomatic premature menopause, E78.5 - Hyperlipidemia, unspecified, F32.A - Depression, unspecified, F41.9 - Anxiety disorder, unspecified, F51.04 - Psychophysiologic insomnia, R73.01 - Impaired fasting glucose Vitamin D 25-OH Total 09/27/23 E28.319 - Asymptomatic premature menopause, E78.5 - Hyperlipidemia, unspecified, F32.A - Depression, unspecified, F41.9 - Anxiety disorder, unspecified, F51.04 - Psychophysiologic insomnia, R73.01 - Impaired fasting glucose TSH reflex Free T4 09/27/23 E03.9 - Hypothyroidism, unspecified Alanine Aminotransferase 09/27/23 E28.319 - Asymptomatic premature menopause, E78.5 - Hyperlipidemia, unspecified, F32.A - Depression, unspecified, F41.9 - Anxiety disorder, unspecified, F51.04 - Psychophysiologic insomnia, R73.01 - Impaired fasting glucose Medications: New trazodone 50 mg PO BEDTIME 30 tabs 0RF Discontinued zolpidem ER Discontinued Reason: Doctor's Order 12.5 mg PO BEDTIME PRN 30 tabs 0RF sleep F51.04 - Psychophysiologic insomnia Coding Level of Care Code Est Pt Level 3 (86570) Diagnoses Anxiety and depression F41.9; F32.A Chronic insomnia F51.04 Additional Codes TELLY-7 Assessment Billing - TELLY-7 Assessment Tool: TELLY-7 Assessment 60810 ([id number])
[2023-06-21 12:09] VITALS: BP 110/76; PULSE 75; O2SAT 97; BMI 29.5
== END 2023-06-21 14:41 | disposition home or self-care (01) ==
PROVIDERS: PCP Internal Medicine; Visit Provider Internal Medicine
DX: F41.9 Anxiety disorder, unspecified (principal); F32.A Depression, unspecified; F51.04 Psychophysiologic insomnia
CPT/HCPCS: 96127; 99214

== ENCOUNTER 2023-10-25 09:02 | Outpatient (AMB) | payer OTHER, SELFPAY ==
[2023-10-25 09:18] VITALS: BP 118/70; PULSE 72; O2SAT 96; BMI 30.1
--- NOTE | 2023-10-25 09:18 | MHC.PC.OV ---
Vital Signs 10/25/23 09:18 Height 4 ft 11 in Weight 149 lb BMI 30.1 BP 118/70 Blood Pressure Location Rt brachial Position Sitting Pulse 72 Pulse Source Pulse Oximeter Pulse Oximetry (%) 96 Oxygen Delivery Method Room Air Intake Visit Reasons: PE Intake Note: pt is here for annual exam last pap: due this year last mammo: 07/2022, due this year [facility] Required: No Accompanied by: Self / Same As Patient Allergies No Known Allergies [No Known Allergies*] Allergy (Verified 10/25/23 09:53) Medication List - Last Reconciled 10/25/23 by Kerry Martínez MD albuterol sulfate 90 mcg/actuation 2 inhalations inhalation Q8H PRN buspirone 10 mg PO BID 3 months trazodone 50 mg PO BEDTIME Tobacco use date assessed: 10/25/23 Dental Screening Dental Screen Date: 06/21/23 HPI PE HPI Details 58-year-old lady here today for physical exam. She had her last Pap smear in 2021 with negative findings, due now for her screening mammogram. She has hyperlipidemia currently not on any medications at present Has anxiety depression currently on buspirone 10 mg 1 tablet twice a day Rich lately does not seem to be helping anymore. She also takes trazodone 50 mg at bedtime as needed for insomnia. [facility] Medical History (Updated 10/25/23 @ 10:10 by Kerry Martínez MD) Asthma Insomnia Low back pain Right medial knee pain Anxiety and depression Annual visit for general adult medical examination with abnormal findings Chronic insomnia Dyslipidemia Impaired fasting glucose History of anemia Vitamin D deficiency Mild intermittent asthma Acquired hypothyroidism Surgical History S/P LASIK surgery of both eyes Hx of shoulder surgery Hx of shoulder surgery History of arthroplasty of right shoulder Hx of removal of cyst H/O tubal ligation Family History Father Myocardial infarction, Onset Age: 65 Maternal Grandmother Breast cancer, Onset Age: 68 Social History Household Members: Spouse Housing: House Are you a primary district manager primary care sales to a significant other at home: No Do you presently have visiting nurse or other home services: No (will be staying with in-laws post-op) Alcohol intake: current Comment: aware of trip hazard Patient Tobacco Use Status: Former Tobacco user Tobacco use type: Cigarette e-Cigarette/Vaping Use: Never Used service: No Current occupational status: employed 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 1. Little interest or pleasure in doing things: several days 2. Feeling down, depressed, or hopeless: more than half the days 3. Trouble falling or staying asleep, or sleeping too much: nearly every day 4. Feeling tired or having little energy: more than half the days 5. Poor appetite or overeating: several days 6. Feeling bad about yourself - or that you are a failure or have let yourself or your family down: several days 7. Trouble concentrating on things, such as reading the newspaper or watching television: several days 8. Moving or speaking so slowly that other people could have noticed. Or the opposite - being so fidgety or restless that you have been moving around a lot more than usual: not at all 9. Thoughts that you would be better off or of hurting yourself in some way: not at all Total score: 11 Depression Screening Interpretation: Positive Depression Screening Follow-up: Existing condition, In treatment, New Medication prescribed, Change in Medication and Community Mental Health Worker F/U Depression Screening Done: Yes 77259 - PHQ-9 Billing: Yes Source: Developed by Drs. Sabino Peace, Jacey Mejia, Rafi Crystal and colleagues, with an educational fareed from [employer] Thrive Questionnaire Date Thrive assessed: 10/25/23 I am a: Patient What is your living situation today?: I have a steady place to live Within the past 12 months, did the food you bought not last and you didn't have the money to get more?: Never true Within the past 12 months, did you worry whether your food would run out before you got money to buy more?: I choose not to answer this question Do you have trouble paying for medicines?: No Do you have trouble getting transportation to medical appointments?: No Do you have trouble paying your heating and electricity bill?: No Do you have trouble taking care of your child, family member or friend?: No Do you have trouble with day-to-day activities such as bathing, preparing meals, shopping, managing finances, etc.?: No Are you currently unemployed and looking for a job?: No Are you interested in more education?: No Please select the resources that you would like help with: None Currently or been in a relationship where the following occur: No concerns reported THRIVE Score: 0 AUDIT C Alcohol Use Questionnaire (AUDIT-C) 1. How often do you have a drink containing alcohol?: 2-3 times a week 2. How many drinks containing alcohol do you have on a typical day when you are drinking?: 1 or 2 3. How often do you have six or more drinks on one occasion?: Less than monthly Total Score: 4 Score Reviewed/Action Taken: Yes TELLY-7 AMB Questionnaire TELLY-7 Date TELLY - 7 assessed: 10/25/23 Feeling nervous, anxious, or on edge: 1 = Several days Not being able to stop or control worryin = More than half the days Worrying too much about different things: 2 = More than half the days Trouble relaxin = Several days Being so restless that it is hard to sit still: 1 = Several days Becoming easily annoyed or irritable: 2 = More than half the days Feeling afraid as if something awful might happen: 2 = More than half the days Total TELLY-7 score (0-4 normal; 5-9 mild; 10-14 moderate; 15-21 severe): 11 Source: Developed by Drs. Sabino Peace, Jacey Mejia, Rafi Crystal and colleagues, with an educational fareed from [employer] TELLY-7 Assessment Billing TELLY-7 Assessment Tool: TELLY-7 Assessment 38404 Review of Systems Const Denies headache(s), Denies malaise, Denies poor appetite and Denies weakness Eyes Details: [facility] ENT Denies dizziness, Denies headache(s) and Denies nasal congestion Card Denies chest pain, Denies lightheadedness and Denies dyspnea Resp Denies chest congestion, Denies cough and Denies dyspnea GI Denies abdominal pain, Denies change in bowel habits and Denies heartburn Reports no additional complaints Musc Reports no additional complaints Skin/Breast Reports system reviewed and no additional complaints, except as documented Neuro Denies dizziness, Denies headache(s) and Denies weakness Psych Reports as per HPI Endo Reports no additional complaints Adarsh/Lymph Reports no additional complaints Aller/Immun Reports no additional complaints Physical exam (Primary Care) Vital Signs: Last Vital Signs Pulse 72 10/25/23 09:18 BP 118/70 10/25/23 09:18 Pulse Ox 96 10/25/23 09:18 Oxygen Delivery Method Room Air 10/25/23 09:18 BMI result Body Mass Index 30.1 Tobacco/Smoking Status: Tobacco use Status Tobacco use date assessed 10/25/23 10/25/23 09:19 Patient Tobacco Use Status Former Tobacco user 10/25/23 09:19 Tobacco use type Cigarette 10/25/23 09:19 e-Cigarette/Vaping Use Never Used 10/25/23 09:19 PHQ-9: PHQ-9 Score PHQ-9: Total score 11 10/25/23 09:53 Depression Screening Interpretation: Positive Depression Screening Follow-up: Existing condition, In treatment, New Medication prescribed, Change in Medication and Community Mental Health Worker F/U Thrive Assessment: Date of Thrive Assessment Date Thrive assessed 10/25/23 10/25/23 09:53 Currently or been in a relationship where the following occur: No concerns reported Const General: comfortable, no acute distress and alert Orientation/consciousness: patient oriented x3 HENMT Head: Yes normocephalic Ears: external ears normal, TM's normal bilaterally and EAC's normal General nose exam: Normal external nose present Face and sinus: Yes face symmetric Teeth and gingiva: dentition normal Eyes General: appearance normal, both eyes and all related structures Neck Neck: Yes full ROM, Yes no lymphadenopathy and Yes supple Chest Chest palpation & inspection: normal inspection of the chest Breast/axilla palpation: normal palpation of the breasts Resp Effort & Inspection: normal respiratory effort and able to speak in complete sentences Auscultation: clear to auscultation bilaterally Cardio Rate: regular rate Rhythm: regular rhythm Heart sounds: S1 normal heart sound present and S2 normal heart sound present GI Other: Soft, with normal bowel sounds, nontender with no mass palpated General: Yes no CVA tenderness Back/Spine/Pelvis Back: no CVA tenderness and No back tenderness Skin General skin exam: no rashes or lesions noted Neuro General: patient oriented x3, gait normal, tone normal, moves all extremities, Normal light touch and pain sensation and no focal motor deficits Cognition (Neuro): normal cognition Extrem General: Yes full ROM, Yes no joint enlargement, Yes no clubbing, cyanosis or edema, Yes no calf tenderness and Yes normal gait Psych Appearance: grossly normal and well kempt Mental Status: mental status grossly normal Speech and movement: Normal speech and movement present Affect: Sad affect present Attitude: cooperative Thought process: Normal thought process present Thought content: Normal thought content present Assessment and Plan Assessment & Plan (1) Annual visit for general adult medical examination with abnormal findings: Code(s): Z00.01 - Encounter for general adult medical examination with abnormal findings Plan: Will check appropriate labs. Continue present dental visit every 6 months and regular eye exams, at least every 2 years. Take adequate calcium in diet and vitamin-D 3 at 2000 IU per cap once a day, in addition to weight-bearing exercises to help maintain good muscle tone and weight control. Instructed to do self-breast exam, and continue with yearly mammogram, up-to-date with her cervical cancer screening done in 2021. Her had colon cancer screening, does not want to get colonoscopy or Cologuard done. She is up-to-date with her COVID vaccination, flu shot and Tdap. Recommended to get vaccinated against herpes zoster, vaccine available to pharmacy. (2) Impaired fasting glucose: Code(s): R73.01 - Impaired fasting glucose Plan: Your previous fasting blood sugars were elevated above 100 mg/dL. Will repeat another fasting glucose and hemoglobin A1c. Impaired glucose metabolism increases the risk for developing diabetes mellitus type 2, as well as heart attack and stroke later on. Lifestyle changes that promotes weight loss, healthy eating habits, and regular exercise are important, and can prevent the progression to diabetes (3) Dyslipidemia: Comment: borderline- no meds Code(s): E78.5 - Hyperlipidemia, unspecified Plan: Fasting labs ordered reinforced importance of following healthy diet and getting regular exercise to lower cholesterol levels (4) Acquired hypothyroidism: Comment: Thyroid levels within normal limits Code(s): E03.9 - Hypothyroidism, unspecified Plan: Will check a TSH with free T4 (5) Chronic insomnia: Code(s): F51.04 - Psychophysiologic insomnia Plan: Stop trazodone, and will try on eszopiclone 2 mg to take 1 tablet at night as needed for difficulty sleeping/insomnia. (6) Anxiety and depression: Code(s): F41.9 - Anxiety disorder, unspecified; F32.A - Depression, unspecified Plan: Patient states that her medicine currently is not helping her anymore with controlling mood swings and anxiety attacks. Will add escitalopram 5 mg to take 1 tablet in a.m. an hour before breakfast, and then take the buspirone but at a lower dose 5 mg 1 tablet twice a day. Will see her for follow-up in a month Orders: Orders MM tomosynthesis screening BI 10/25/23 Z12.31 - Encounter for screening mammogram for malignant neoplasm of breast Lipid Panel 10/25/23 E03.9 - Hypothyroidism, unspecified, E28.319 - Asymptomatic premature menopause, E78.5 - Hyperlipidemia, unspecified, F32.A - Depression, unspecified, F41.9 - Anxiety disorder, unspecified, F51.04 - Psychophysiologic insomnia, R73.01 - Impaired fasting glucose Basic Metabolic Panel Fasting 10/25/23 E03.9 - Hypothyroidism, unspecified, E28.319 - Asymptomatic premature menopause, E78.5 - Hyperlipidemia, unspecified, F32.A - Depression, unspecified, F41.9 - Anxiety disorder, unspecified, F51.04 - Psychophysiologic insomnia, R73.01 - Impaired fasting glucose TSH reflex Free T4 10/25/23 E03.9 - Hypothyroidism, unspecified, E78.5 - Hyperlipidemia, unspecified, F32.A - Depression, unspecified, F41.9 - Anxiety disorder, unspecified, F51.04 - Psychophysiologic insomnia, R73.01 - Impaired fasting glucose Hemoglobin A1c 10/25/23 E03.9 - Hypothyroidism, unspecified, E28.319 - Asymptomatic premature menopause, E78.5 - Hyperlipidemia, unspecified, F32.A - Depression, unspecified, F41.9 - Anxiety disorder, unspecified, F51.04 - Psychophysiologic insomnia, R73.01 - Impaired fasting glucose Vitamin D 25-OH Total 10/25/23 E03.9 - Hypothyroidism, unspecified, E28.319 - Asymptomatic premature menopause, E78.5 - Hyperlipidemia, unspecified, F32.A - Depression, unspecified, F41.9 - Anxiety disorder, unspecified, F51.04 - Psychophysiologic insomnia, R73.01 - Impaired fasting glucose Thyroid Peroxidase Antibodies 10/25/23 E03.9 - Hypothyroidism, unspecified, E78.5 - Hyperlipidemia, unspecified, F32.A - Depression, unspecified, F41.9 - Anxiety disorder, unspecified, F51.04 - Psychophysiologic insomnia, R73.01 - Impaired fasting glucose Medications: New eszopiclone 2 mg PO BEDTIME PRN 30 tabs 0RF insomnia escitalopram oxalate 5 mg PO DAILY 30 tabs 1RF F32.A - Depression, unspecified, F41.9 - Anxiety disorder, unspecified buspirone 5 mg PO BID 60 tabs 1RF Discontinued buspirone Discontinued Reason: Doctor's Order 10 mg PO BID 3 months 180 tabs 2RF F32.A - Depression, unspecified, F41.9 - Anxiety disorder, unspecified trazodone Discontinued Reason: Doctor's Order 50 mg PO BEDTIME 90 tabs 0RF Coding Level of Care Code Est Pt Prev Care 40-64y(66723) Diagnoses Annual visit for general adult medical examination with abnormal findings Z00.01 Impaired fasting glucose R73.01 Dyslipidemia E78.5 Acquired hypothyroidism E03.9 Chronic insomnia F51.04 Anxiety and depression F41.9; F32.A Additional Codes TELLY-7 Assessment Billing - TELLY-7 Assessment Tool: TELLY-7 Assessment 11174 ([id number])
== END 2023-10-25 11:16 | disposition home or self-care (01) ==
LOC: HO.HMGC 09:02
PROVIDERS: PCP Internal Medicine; Visit Provider Internal Medicine
DX: Z00.01 Encounter for general adult medical examination with abnormal findings (principal); R73.01 Impaired fasting glucose; E78.5 Hyperlipidemia, unspecified; E03.9 Hypothyroidism, unspecified; F51.04 Psychophysiologic insomnia; F41.9 Anxiety disorder, unspecified; F32.A Depression, unspecified
CPT/HCPCS: 96127; 99213; 99396

== ENCOUNTER 2023-10-25 10:32 | Outpatient (REF) | payer OTHER, SELFPAY ==
[2023-10-25 14:25] LABS: Alanine Aminotransferase 21 U/L (0-31); Anion Gap 10 (12-20); Aspartate Amino Transferase 28 U/L (5-31); Blood Urea Nitrogen 13 mg/dL (9-16); Calcium 9.5 mg/dL (8.4-10.2); Carbon Dioxide 29 mmol/L (22-29); Chloride 107 mmol/L (96-108); Cholesterol 204 mg/dL (<200); Estimated Glomerular Filt Rate > 60; Glucose Fasting 102 mg/dL (60-99); HDL Cholesterol 58 mg/dL (>40); LDL Cholesterol Calculated 129 mg/dL (<100); Potassium 4.4 mmol/L (3.3-5.1); Sodium 142 mmol/L (135-145); Triglycerides 88 mg/dL (<150); Vitamin D 25-OH Total 65.8 ng/mL (>30)
[2023-10-25 14:34] LABS: Estimated Average Glucose 108 mg/dL; Hemoglobin A1c % 5.4 % (<6.0)
[2023-10-26 13:34] LABS: Thyroid Peroxidase Antibodies 1 IU/mL (<9)
== END 2023-10-25 10:33 | disposition home or self-care (01) ==
LOC: HO.HMGCLDS 10:32
PROVIDERS: PCP Internal Medicine; Visit Provider Internal Medicine
DX: F41.9 Anxiety disorder, unspecified (principal); F32.A Depression, unspecified; F51.04 Psychophysiologic insomnia; E78.5 Hyperlipidemia, unspecified; R73.01 Impaired fasting glucose; E28.319 Asymptomatic premature menopause; E03.9 Hypothyroidism, unspecified
CPT/HCPCS: 36415; 80048; 80061; 82306; 83036; 84443; 84450; 84460; 86376

== ENCOUNTER 2023-11-09 15:44 | Outpatient (REF) | payer OTHER, SELFPAY ==
--- NOTE | ~2023-11-09 | MM_ITS ---
EXAMINATION: MM SCREENING DIGITAL BREAST TOMOSYNTHESIS, BILATERAL CLINICAL INFORMATION: Screening. Asymptomatic. COMPARISON: Mammography: This study is compared with prior exams dating back to 2009 TECHNIQUE: Digital breast tomosynthesis is performed in both the craniocaudal and mediolateral oblique views along with computer-aided detection (CAD). Synthesized 2D images are generated from the tomosynthesis. FINDINGS: There are scattered areas of fibroglandular density (ACR BI-RADS breast composition Category b). No suspicious lesions, calcifications or architectural distortion of the right breast. Left focal asymmetry with calcification identified anterior upper outer breast, CC 22/65, MLO 20/70. Patient should return for compression views and if persistent, ultrasound. MM/MM tomosynthesis screening BI IMPRESSION: Left breast focal asymmetry No mammographic evidence of malignancy right breast. ASSESSMENT: BI-RADS BI-RADS 0 - Incomplete: Needs additional Imaging. RECOMMENDATION: 1. Additional views of the left breast to include compression CC and MLO views. 2. Targeted ultrasound if warranted after review of the additional views. 3. Radiology department staff will contact the patient for additional imaging. This examination should not preclude the clinical evaluation of a suspicious palpable abnormality. This patient's information was entered into a reminder system with a target due date for their next mammogram. Electronically signed by: Chandni Joaquin MD 12/08/2023 08:15 AM EDT
== END 2023-11-09 15:45 | disposition home or self-care (01) ==
LOC: HO.MAMMO 15:44
PROVIDERS: PCP Internal Medicine; Visit Provider Internal Medicine
DX: Z12.31 Encounter for screening mammogram for malignant neoplasm of breast (principal)
CPT/HCPCS: 77063; 77067

== ENCOUNTER 2023-12-03 08:00 | Outpatient (AMB) | payer OTHER, SELFPAY ==
--- NOTE | 2023-12-03 07:58 | MHC.PC.OV ---
Intake Visit Reasons: 6 wk f/u [phone](Iphone) Intake Note: Pt is here is having a telehealth visit for her 6 wks f/u Allergies No Known Allergies [No Known Allergies*] Allergy (Verified 12/03/23 08:13) Medication List - Last Reconciled 12/03/23 by Kerry Martínez MD albuterol sulfate 90 mcg/actuation 2 inhalations inhalation Q8H PRN buspirone 5 mg PO BID escitalopram oxalate 5 mg PO DAILY eszopiclone 2 mg PO BEDTIME PRN Tobacco use date assessed: 12/03/23 Dental Screening Dental Screen Date: 12/03/23 Did you have a dental visit in the last 12 months?: Yes Did you have a dental problem in the last 6 months where you did not have access to dental care?: No Was dental information given to patient?: Patient has dentist HPI 6 wk f/u [phone](Iphone) HPI Details 58-year-old lady with anxiety depression, and chronic insomnia, here today for follow-up. She has been taking escitalopram 5 mg daily in the morning and buspirone 5 mg 1 tablet twice a day, which she states has been helping. Mood has improved, anxiety attacks are lessened. Just came back from a camping trip which she states she enjoys she also has been sleeping better on eszopiclone 2 mg 1 tablet at bedtime. Has tried not taking it but was unable to sleep. Denies any side effects from taking the medication, no drowsiness, lightheadedness when she wakes up in the morning. Would like to try weaning herself off buspirone and just take escitalopram . [facility] Medical History Asthma Insomnia Low back pain Right medial knee pain Anxiety and depression Annual visit for general adult medical examination with abnormal findings Chronic insomnia Dyslipidemia Impaired fasting glucose History of anemia Vitamin D deficiency Mild intermittent asthma Acquired hypothyroidism Surgical History S/P LASIK surgery of both eyes Hx of shoulder surgery Hx of shoulder surgery History of arthroplasty of right shoulder Hx of removal of cyst H/O tubal ligation Family History Father Myocardial infarction, Onset Age: 65 Maternal Grandmother Breast cancer, Onset Age: 68 Social History Household Members: Spouse Housing: House Are you a primary day care supervisor to a significant other at home: No Do you presently have visiting nurse or other home services: No (will be staying with in-laws post-op) Alcohol intake: current Comment: aware of trip hazard Patient Tobacco Use Status: Former Tobacco user Tobacco use type: Cigarette e-Cigarette/Vaping Use: Never Used service: No Current occupational status: employed 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 1. Little interest or pleasure in doing things: not at all 2. Feeling down, depressed, or hopeless: not at all 3. Trouble falling or staying asleep, or sleeping too much: not at all (Sleeping better on eszopiclone) 4. Feeling tired or having little energy: not at all 5. Poor appetite or overeating: not at all 6. Feeling bad about yourself - or that you are a failure or have let yourself or your family down: not at all 7. Trouble concentrating on things, such as reading the newspaper or watching television: not at all 8. Moving or speaking so slowly that other people could have noticed. Or the opposite - being so fidgety or restless that you have been moving around a lot more than usual: not at all 9. Thoughts that you would be better off or of hurting yourself in some way: not at all Total score: 0 Depression Screening Interpretation: Negative (Improved since starting escitalopram taken together with buspirone) Depression Screening Done: Yes 94181 - PHQ-9 Billing: Yes Source: Developed by Drs. Sabino Peace, Jacey Mejia, Rafi Crystal and colleagues, with an educational fareed from [employer]. TELLY-7 AMB Questionnaire TELLY-7 Date TELLY - 7 assessed: 12/03/23 Feeling nervous, anxious, or on edge: 0 = Not at all Not being able to stop or control worryin = Not at all Worrying too much about different things: 0 = Not at all Trouble relaxin = Not at all Being so restless that it is hard to sit still: 0 = Not at all Becoming easily annoyed or irritable: 0 = Not at all Feeling afraid as if something awful might happen: 0 = Not at all Total TELLY-7 score (0-4 normal; 5-9 mild; 10-14 moderate; 15-21 severe): 0 Source: Developed by Drs. Sabino Peace, Jacey Mejia, Rafi Crystal and colleagues, with an educational fareed from [employer]. TELLY-7 Assessment Billing TELLY-7 Assessment Tool: TELLY-7 Assessment 41867 Review of Systems Const Denies headache(s), Denies malaise, Denies poor appetite and Denies weakness ENT Denies dizziness, Denies headache(s) and Denies nasal congestion Card Denies chest pain, Denies lightheadedness and Denies dyspnea Resp Denies chest congestion, Denies cough and Denies dyspnea GI Denies abdominal pain, Denies change in bowel habits and Denies heartburn Reports no additional complaints Musc Reports no additional complaints Skin/Breast Reports system reviewed and no additional complaints, except as documented Neuro Denies dizziness, Denies headache(s) and Denies weakness Psych Reports as per HPI Endo Reports no additional complaints Adarsh/Lymph Reports no additional complaints Aller/Immun Reports no additional complaints Physical exam (Primary Care) Tobacco/Smoking Status: Tobacco use Status Tobacco use date assessed 12/03/23 12/03/23 07:59 Patient Tobacco Use Status Former Tobacco user 12/03/23 07:59 Tobacco use type Cigarette 12/03/23 07:59 e-Cigarette/Vaping Use Never Used 12/03/23 07:59 Depression Screening Interpretation: Negative (Improved since starting escitalopram taken together with buspirone) Thrive Assessment: Date of Thrive Assessment Date Thrive assessed 10/25/23 12/03/23 07:59 Telehealth Telehealth Telehealth Platform: [facility] Location of provider rendering services: practice address Location of patient: address on file Patient Identification confirmed using: Name, : Yes Telehealth method: video Patient verbally consented to treatment: Yes Patient verbally consented to billing insurance company: Yes Patient informed of any privacy concerns related to visit: Yes Minutes spent on Phone/Video with Pt.: 15 Assessment and Plan Assessment & Plan (1) Anxiety and depression: Code(s): F41.9 - Anxiety disorder, unspecified; F32.A - Depression, unspecified Plan: Continue with escitalopram, doing well on present dose, will be weaning off buspirone, schedule another telehealth follow-up as needed , otherwise she already has a physical exam scheduled for next year (2) Chronic insomnia: Code(s): F51.04 - Psychophysiologic insomnia Plan: Improved on eszopiclone 2 mg taken at bedtime, will continue. Advised patient also to try taking half a dose, and see if this lower dose will also help with her insomnia Medications: Refilled escitalopram oxalate 5 mg PO DAILY 90 tabs 2RF F32.A - Depression, unspecified, F41.9 - Anxiety disorder, unspecified eszopiclone 2 mg PO BEDTIME PRN 30 tabs 3RF insomnia Discontinued buspirone Discontinued Reason: Patient no longer taking 5 mg PO BID 60 tabs 1RF Coding Level of Care Code Tele Est Pt Level 3 (37387) Diagnoses Anxiety and depression F41.9; F32.A Chronic insomnia F51.04 Additional Codes TELLY-7 Assessment Billing - TELLY-7 Assessment Tool: TELLY-7 Assessment 32852 ([id number])
== END 2023-12-03 08:33 | disposition home or self-care (01) ==
LOC: HO.HMGC 08:00
PROVIDERS: PCP Internal Medicine; Visit Provider Internal Medicine
DX: F41.9 Anxiety disorder, unspecified (principal); F32.A Depression, unspecified; F51.04 Psychophysiologic insomnia
CPT/HCPCS: 99213

== ENCOUNTER 2024-07-14 08:15 | Outpatient (AMB) | payer OTHER, SELFPAY ==
--- NOTE | 2024-07-14 08:11 | MHC.PC.OV ---
Intake Visit Reasons: med management/depression Allergies No Known Allergies [No Known Allergies*] Allergy (Verified 07/14/24 08:24) Medication List - Last Reconciled 07/14/24 by Kerry Martínez MD albuterol sulfate 90 mcg/actuation 2 inhalations inhalation Q8H PRN Tobacco use date assessed: 07/14/24 Dental Screening Dental Screen Date: 07/14/24 Did you have a dental visit in the last 12 months?: No Did you have a dental problem in the last 6 months where you did not have access to dental care?: No Was dental information given to patient?: Patient has dentist HPI med management/depression HPI Details With 62-year-old lady here today for follow-up on her anxiety and depression. She was initially started on buspirone and then later added escitalopram, which she states has not really been helping. She states that she has started seeing a therapist and has been getting some valuable behavioral modification techniques to help cope with her anxiety. She also has not been sleeping, would have a hard time initiating and maintaining sleep. Patient states that she averages about 3-4 hours of sleep every day and this is not at all restful she frequently wakes up in the middle of the night She has history of mild intermittent asthma, only using albuterol inhaler as needed for episodes of bronchospasm and wheezing. She would like a refill on her albuterol inhaler. She has history of acquired hypothyroidism , currently not taking any medicine at present time. [facility], [facility] Medical History (Updated 07/15/24 @ 02:15 by Kerry Martínez MD) Asthma Insomnia Low back pain Right medial knee pain Anxiety and depression Annual visit for general adult medical examination with abnormal findings Chronic insomnia Dyslipidemia Impaired fasting glucose History of anemia Vitamin D deficiency Mild intermittent asthma Acquired hypothyroidism Surgical History S/P LASIK surgery of both eyes Hx of shoulder surgery Hx of shoulder surgery History of arthroplasty of right shoulder Hx of removal of cyst H/O tubal ligation Family History Father Myocardial infarction, Onset Age: 65 Maternal Grandmother Breast cancer, Onset Age: 68 Social History Household Members: Spouse Housing: House Are you a primary attending ambulatory care to a significant other at home: No Do you presently have visiting nurse or other home services: No (will be staying with in-laws post-op) Alcohol intake: current Comment: aware of trip hazard Patient Tobacco Use Status: Former Tobacco user Tobacco use type: Cigarette e-Cigarette/Vaping Use: Never Used service: No Current occupational status: employed 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 1. Little interest or pleasure in doing things: not at all 2. Feeling down, depressed, or hopeless: not at all 3. Trouble falling or staying asleep, or sleeping too much: not at all 4. Feeling tired or having little energy: not at all 5. Poor appetite or overeating: not at all 6. Feeling bad about yourself - or that you are a failure or have let yourself or your family down: not at all 7. Trouble concentrating on things, such as reading the newspaper or watching television: not at all 8. Moving or speaking so slowly that other people could have noticed. Or the opposite - being so fidgety or restless that you have been moving around a lot more than usual: not at all 9. Thoughts that you would be better off or of hurting yourself in some way: not at all Total score: 0 Depression Screening Interpretation: Negative Depression Screening Done: Yes Source: Developed by Drs. Sabino Peace, Jacey Mejia, Rafi Crystal and colleagues, with an educational fareed from [address]. Thrive Questionnaire Date Thrive assessed: 07/14/24 I am a: Patient What is your living situation today?: I have a steady place to live Within the past 12 months, did the food you bought not last and you didn't have the money to get more?: Never true Within the past 12 months, did you worry whether your food would run out before you got money to buy more?: Never true Do you have trouble paying for medicines?: No Do you have trouble getting transportation to medical appointments?: No Do you have trouble paying your heating and electricity bill?: No Do you have trouble taking care of your child, family member or friend?: No Do you have trouble with day-to-day activities such as bathing, preparing meals, shopping, managing finances, etc.?: No Are you currently unemployed and looking for a job?: No Are you interested in more education?: No Please select the resources that you would like help with: None THRIVE Score: 0 AUDIT C Alcohol Use Questionnaire (AUDIT-C) 1. How often do you have a drink containing alcohol?: 2-3 times a week 2. How many drinks containing alcohol do you have on a typical day when you are drinking?: 1 or 2 3. How often do you have six or more drinks on one occasion?: Weekly Total Score: 6 Score Reviewed/Action Taken: Yes TELLY-7 AMB Questionnaire TELLY-7 Date TELLY - 7 assessed: 07/14/24 Feeling nervous, anxious, or on edge: 1 = Several days Not being able to stop or control worryin = Several days Worrying too much about different things: 0 = Not at all Trouble relaxin = Not at all Being so restless that it is hard to sit still: 0 = Not at all Becoming easily annoyed or irritable: 0 = Not at all Feeling afraid as if something awful might happen: 0 = Not at all Total TELLY-7 score (0-4 normal; 5-9 mild; 10-14 moderate; 15-21 severe): 2 Source: Developed by Drs. Sabino Peace, Jacey Mejia, Rafi Crystal and colleagues, with an educational fareed from [employer] [address]. TELLY-7 Assessment Billing TELLY-7 Assessment Tool: TELLY-7 Assessment 77744 Review of Systems Const Denies headache(s), Denies malaise, Denies poor appetite and Denies weakness ENT Denies dizziness, Denies headache(s) and Denies nasal congestion Card Denies chest pain, Denies lightheadedness and Denies dyspnea Resp Denies chest congestion, Denies cough and Denies dyspnea GI Denies abdominal pain, Denies change in bowel habits and Denies heartburn Reports no additional complaints Musc Reports no additional complaints Skin/Breast Reports system reviewed and no additional complaints, except as documented Neuro Denies dizziness, Denies headache(s) and Denies weakness Psych Reports as per HPI Endo Reports no additional complaints Adarsh/Lymph Reports no additional complaints Aller/Immun Reports no additional complaints Physical exam (Primary Care) Tobacco/Smoking Status: Tobacco use Status Tobacco use date assessed 07/14/24 07/14/24 08:13 Patient Tobacco Use Status Former Tobacco user 07/14/24 08:13 Tobacco use type Cigarette 07/14/24 08:13 e-Cigarette/Vaping Use Never Used 07/14/24 08:13 PHQ-9: PHQ-9 Score PHQ-9: Total score 0 07/14/24 08:36 Depression Screening Interpretation: Negative Thrive Assessment: Date of Thrive Assessment Date Thrive assessed 07/14/24 07/14/24 08:14 Telehealth Telehealth Telehealth Platform: [employer] Mobile Location of provider rendering services: practice address Location of patient: address on file Patient Identification confirmed using: Name, : Yes Telehealth method: video Patient verbally consented to treatment: Yes Patient verbally consented to billing insurance company: Yes Patient informed of any privacy concerns related to visit: Yes Minutes spent on Phone/Video with Pt.: 15 Coding Level of Care Code Tele Est Pt Level 4 (71171) Diagnoses Chronic insomnia F51.04 Mild intermittent asthma without complication J45.20 Asthma complication type: uncomplicated Generalized anxiety disorder F41.1 Additional Codes TELLY-7 Assessment Billing - TELLY-7 Assessment Tool: TELLY-7 Assessment 39981 ([id number]) Assessment & Plan Assessment & Plan (1) Chronic insomnia: Code(s): F51.04 - Psychophysiologic insomnia Category: Medical Plan: Discontinue doxepin, Will try on zolpidem 6.25 mg per tablet to take 1 at bedtime as needed for insomnia discussed possible side effects of medication which may include sleep walking. Do not take medicine anymore if this happens. (2) Mild intermittent asthma: Code(s): J45.20 - Mild intermittent asthma, uncomplicated Category: Medical Qualifiers: Asthma complication type: uncomplicated Qualified Code(s): J45.20 - Mild intermittent asthma, uncomplicated Plan: Refill sent for her albuterol inhaler which she has been using only as needed for episodes of bronchospasm and wheezing. (3) Generalized anxiety disorder: Code(s): F41.1 - Generalized anxiety disorder Plan: Patient opts not to start any medication for her anxiety at present time as she states that behavioral techniques taught by her therapist has allowed her to control her anxiety symptoms. Orders: Orders Lipid Panel 10/28/24 E03.9 - Hypothyroidism, unspecified, E78.5 - Hyperlipidemia, unspecified, F51.04 - Psychophysiologic insomnia, J45.20 - Mild intermittent asthma, uncomplicated, R73.01 - Impaired fasting glucose Aspartate Amino Transferase 10/28/24 E03.9 - Hypothyroidism, unspecified, E78.5 - Hyperlipidemia, unspecified, F51.04 - Psychophysiologic insomnia, J45.20 - Mild intermittent asthma, uncomplicated, R73.01 - Impaired fasting glucose Hemoglobin A1c 10/28/24 E03.9 - Hypothyroidism, unspecified, E78.5 - Hyperlipidemia, unspecified, F51.04 - Psychophysiologic insomnia, J45.20 - Mild intermittent asthma, uncomplicated, R73.01 - Impaired fasting glucose Thyroid Peroxidase Antibodies 10/28/24 E03.9 - Hypothyroidism, unspecified, E78.5 - Hyperlipidemia, unspecified, F51.04 - Psychophysiologic insomnia, J45.20 - Mild intermittent asthma, uncomplicated, R73.01 - Impaired fasting glucose Alanine Aminotransferase 10/28/24 E03.9 - Hypothyroidism, unspecified, E78.5 - Hyperlipidemia, unspecified, F51.04 - Psychophysiologic insomnia, J45.20 - Mild intermittent asthma, uncomplicated, R73.01 - Impaired fasting glucose Basic Metabolic Panel Fasting 10/28/24 E03.9 - Hypothyroidism, unspecified, E78.5 - Hyperlipidemia, unspecified, F51.04 - Psychophysiologic insomnia, J45.20 - Mild intermittent asthma, uncomplicated, R73.01 - Impaired fasting glucose Thyroid Stimulating Hormone 10/28/24 E03.9 - Hypothyroidism, unspecified, E78.5 - Hyperlipidemia, unspecified, F51.04 - Psychophysiologic insomnia, J45.20 - Mild intermittent asthma, uncomplicated, R73.01 - Impaired fasting glucose Free T4 (Free Thyroxine) 10/28/24 E03.9 - Hypothyroidism, unspecified, E78.5 - Hyperlipidemia, unspecified, F51.04 - Psychophysiologic insomnia, J45.20 - Mild intermittent asthma, uncomplicated, R73.01 - Impaired fasting glucose Medications: New zolpidem ER 6.25 mg PO BEDTIME PRN 30 tabs 0RF sleep Refilled albuterol sulfate 90 mcg/actuation 2 inhalations inhalation Q8H PRN 8.5 grams 1RF shortness of breath or wheezing
--- OUTSIDE RECORDS SUMMARY | 2024-07-14 08:33 | XMS_ITS | Data Portability ---
Author Organization [facility] Address [address] [place] [address] Assessment No assessment recorded. Plan of Treatment Reminders Order Date Submit Date Provider Last Modified By Organization Details Last Modified Time Details Appointments None recorded. Lab CBC w/ diff 2018 019 [facility], [address] [place] [address], [id number], 9 08:31:39 iron + TIBC + ferritin, serum [address] [facility], [address] [place] [address], [id number], 9 13:21:48 fecal occult blood X 3, stool 2018 019 [facility], [address] [place] [address], [id number], 9 14:05:08 Referral None recorded. Procedures None recorded. Surgeries None recorded. Imaging None recorded. Medication Orders zolpidem 5 mg tablet 2018 019 [facility]FACE [id number], [address] [place], [address], 9 13:55:54 Qvar RediHaler 40 mcg/actuat ion HFA breath activated aerosol 2018 019 [id number], [address] [place], [address], 0 08:59:35 Patient TargetsNo targets recorded. Patient Instructions Encounter Date Encounter Id Patient Instructions Last Modified By Organization Details Last Modified Time 09/02/2018 [id number] restless legs syndrome: care instructions Not available 09/02/2018 13:55:52 insomnia: care instructions Not available 09/02/2018 13:55:52 learning about healthy weight Not available 09/02/2018 13:55:52 hypothyroidism: care instructions Not available 09/02/2018 13:55:52 iron deficiency anemia: care instructions Not available 09/02/2018 13:55:52 peak flow* Not available 09/2018 13:55:52 pulse oximetry* Not available 09/02/2018 13:55:52 10/20/2019 [id number] pulse oximetry* rtryba Not available 10/20/2019 11:34:32 Reason for Referral None Reported. Results Created Date Observation Date Name Description Value Unit Range Abnormal Flag Note LastModifiedBy Organization Detail LastModifiedTime 09/03/19 19 09/02/2018 peak flow* Test 1 320 Not Available [facility] [address] [place] [address], [place], [address], 09/02/2018 13:31:10 09/03/1909/02/2018 peak flow* Test 2 250 Not Available [facility] [address] [place] [address], [phone], 09/02/2018 13:31:10 09/03/1909/02/2018 peak flow* Test 3 230 Not Available [facility] [address] [place] [address], [place], [address], 09/02/2018 13:31:10 09/03/1909/02/2018 pulse oxime try* Result 99 Not Available [facility] [address] [place] [address], [place], [address], 09/02/2018 13:31:18 10/20/1910/20/2019 pulse oxime try* Result 97 Not Available [facility] [address] [facility] [address], [place], [address], 10/20/2019 09:01:31 11/30/19 20 11/29/2019 MAMMO , diagn ostic , digit al, bilat eral No observ ation record ed. [facility] (Medical Records) [address], [place], [address], 11/30/2019 18:58:12 Result Notes None recorded. Problems Name Problem SNOMED Code Status Onset Date Resolution Date Notes Provider Name and Address Organization Details Recorded Time Hypothyroidis m 19077300 Active 2018 Not Available [facility] 0 11:44:36 Acute asthma Active 2018 Not Available [facility] 0 11:44:36 Eczema 67257497 Active 2018 Not Available [facility] 0 11:44:36 Insomnia 812344348 Active 2018 Not Available [facility] 0 11:44:36 Restless legs 34559438 Active 2018 Not Available [facility] 0 11:44:36 Lateral epicondylitis 788397125 Active 2018 Not Available [facility] 0 11:44:36 Problem Notes None recorded. Procedures Surgical History Date Name Laterality Status Provider Name and Address Organization Details Recorded Time 019 Most Recent Mammogram completed Noelle Jeffries [facility] 08/31/2018 08:20:21 Caesarean Section completed Viviane Villalobos NP, [address] [place] [address], [phone], [facility] 06/28/2018 08:51:54 laser assisted in situ keratomileusis completed Viviane Villalobos NP, [address] [place] [address], [phone], [facility] 06/28/2018 08:52:10 Shoulder joint surgery completed Viviane Villalobos NP, [address] [place] [address], [phone], [facility] 06/28/2018 08:52:26 Imaging Results Imaging Date Name Status LastModified by Organiz ation Details LastModified Time 11/29/2019 MAMMO, diagnostic, digital, bilateral completed [facility] (Medical Records) [address], [place], [address], 11/30/2019 18:58:12 Procedure Notes None recorded. Medical Equipment None Reported. Allergies No known drug allergies Medications Name Sig Start Date Stop Date Status Note LastModified by Organization Details LastModified Time triamcinolo ne acetonide 0.5 % topical cream APPLY A THIN LAYER TO THE AFFECTED AREA(S) BY TOPICAL ROUTE 2 TIMES PER DAY active Not Available Not Available No t Available diazepam 2 mg tablet Take 1 tablet(s) every day by oral route at bedtime. 09/02 completed Not Available Not Available Not Available levothyroxi ne 50 mcg tablet TAKE 1 TABLET BY MOUTH EVERY DAY active Not Available Not Available No t Available zolpidem 5 mg tablet TAKE 1 TABLET BY MOUTH EVERY DAY active Not Available Not Available No t Available albuterol sulfate HFA 90 mcg/actuati on aerosol inhaler INHALE 2 PUFFS BY MOUTH 3 TIMES A DAY NEEDED. active Not Available Not Available No t Available Boostrix Tdap 2.5 Lf unit-8 mcg-5 Lf/0.5 mL intramuscul ar syringe PHARMACY ADMINISTE RED active Not Available Not Available No t Available iron one tablet every other day active Not Available Not Available No t Available Qvar RediHaler 40 mcg/actuati on HFA breath activated aerosol Inhale 2 puffs twice a day by inhalatio n route for 30 days. 10/19 completed Not Available Not Available Not Available Afluria Qd 2019-21 (36 mos up)(PF)60 mcg (15 mcg x4)/0.5 mL IM syringe ADM 0.5ML IM UTD active Not Available Not Available No t Available Vitals Date Recorded Body height Body mass index (BMI) Body weight Heart rate Oxygen saturation Oxygen saturation in Arterial blood by Pulse oximetry Systolic blood pressure Diastolic blood pressure Provider Name and Address Organization Details Last Updated DateTime 0 148.59 cm 29 kg/m2 03173.6 g 69 /min 97 % 97 % 98 mm[Hg] 78 mm[Hg] Noellecarmela Tilleybenjamin [facility] 0 09:01:15 Date Recorded Body height Body mass index (BMI) Body weight Heart rate Oxygen saturation Oxygen saturation in Arterial blood by Pulse oximetry Systolic blood pressure Diastolic blood pressure Provider Name and Address Organization Details Last Updated DateTime 9 149.23 cm 29.8 kg/m2 77564.5 6 g 66 /min 99 % 99 % 104 mm[Hg] 72 mm[Hg] Noellecarmela Tilleybenjamin [facility] 9 13:32:29 Social History Question Answer Notes LastModified by Organizat ion Details LastModified Time Tobacco Smoking Status Former Smoker Not Available [facility] 01/30/2020 03:36:24 What Was The Date Of Your Most Recent Tobacco Screening? 09/02/2018 [id number] Information not available 01/30/2020 Sex: Unknown Functional Status None recorded. Mental Status None recorded. Family History Relationship Description Onset Age of this Age Resolved Age Notes LastModified by Organization Details LastModified Time Mother Malignant neoplasm of skin beatriz Not available 2018 08:51:36 Medical History No medical history recorded. Gynecological History Statement/Question Response Most Recent Mammogram 07/04/2018 Obstetrics History GPAL:G 0 P 0 0 0 0 Immunizations Vaccine Type Date Status Note Provider Nam e and Address Organization Details Recorded Time Tdap 02/28/2020 completed Fela jara [facility] 03/01/2020 11:52:02 Past Encounters Encounter ID Performer Location Encounter Start Date Encounter Closed Date Diagnosis/Indication Diagnosis SNOMED-CT Code Diagnosis ICD10 Code Diagnosis Note [id number] June NIMESH Amador [facility] [address] [facility],[place] [address] 09/02/2018 13:24:33 09/02/2018 14:06:04 Adult health examination 571844992 Z00.00 Active or passive immunization 824244875 Z23 Acute asthma 479161557 J 45.901 Hypothyroidism 57219772 E03.9 just checked was normal Body mass index 25-29 - overweight 880698190 Z68.29 healthy diet and exercise Iron defic iency anemia 17292041 D50.9 was started on iron supplement will recheck labs Screening for malignant neoplasm of colon 465051715 Z12.11 states not ready says she needs to mentally prepare for it Insomnia 802923288 G47.0 0 d/c diazepam trial maira Restless legs 92122247 G 25.81 [id number] [facility] [address],[place] [address] 10/20/2019 08:52:08 10/20/2019 12:14:31 Asthma 174429441 J45.909 stable, rarely needs to use inhaler Hypothyroidism 91333929 E03.9 recent TSH lab looked excellent everything wnl takes medication as perscribed , doing well Insomnia G47.0 0 the zolpidem helps with this, has not had any issues on this medication and helps her sleep through the night without waking Health Concerns Section Related Observation LastModified by Organization Detai ls LastModified Time None Recorded Concern Status LastModified by Organization Details LastModified Time None Recorded Advance Directives Directive None Recorded Payers Encounter Date Sequence Insurance Name Policy Number Policy Roman Covered Member ID Roman Member ID Guarantor Name 09/02/[address] [facility] [id number] Rebeca Jiménez [id number] Rebeca Jiménez 10/20/[address] [facility] [id number] Rebeca Jiménez [id number] Rebeca Jiménez Notes Date Note Type Note Provider Name a nd Address Organization Details Recorded Time 9 text/html Annual WellnessReported bypatient.Diet and Nutrition:healthy diet; discussed diet improvement; admits sometimes fast food Fracture Risk:no history of fractures Physical Activity:exercises on a regular basis (daily) Additional Lifestyle Factors:no tobacco use; drinks alcohol (mild-moderate) Depression Risk:never feels sad, empty, or tearful; no loss of interest in activities; no history of depression Hearing:no loss of hearing Vision:no vision problems 1. insomnia/rls - takes diazepam, stays asleep for only 4 hours then wakes up after an hour 2. iron def anemia - on iron, cause of deficiency not yet determined. does have heavy periods. never seen any blood in stool 3. asthma - uses pro air as needed and qvar through the winter June NIMESH Amador [address] [place], [address], [facility] 09/02/2018 14:03:58 0 text/html medication f/u the patient is here for a medication fu the patient does not need any refills today, doing well on medication, no side effects BP is excellent today, no concerns there had TSH and iron panel done, labs were all wnl nothing concerning found her asthma has been stable, only uses albuterol infrequently, no increase in it's use denies chest pain, sob, fever, chills, cough, wheezing, abdominal pain, fatigue, n/v/d KEITH MEJIA [address] [place], [address], [facility] 10/20/2019 11:34:38 OBGyn Episode No OBEpisode recorded.
== END 2024-07-14 12:06 | disposition home or self-care (01) ==
LOC: HO.HMCC 08:15
PROVIDERS: PCP Internal Medicine; Visit Provider Internal Medicine
DX: J45.20 Mild intermittent asthma, uncomplicated (principal); F51.04 Psychophysiologic insomnia; F41.1 Generalized anxiety disorder

== ENCOUNTER → 2024-07-14 08:15 | Outpatient (BNVA) | payer OTHER, SELFPAY | PROVIDERS: PCP Internal Medicine; Visit Provider Internal Medicine | DX: F51.04 Psychophysiologic insomnia (principal); J45.20 Mild intermittent asthma, uncomplicated; F41.1 Generalized anxiety disorder | CPT/HCPCS: 96127 ==

== ENCOUNTER 2024-11-16 09:51 | Outpatient (AMB) | payer OTHER, SELFPAY ==
--- NOTE | 2024-11-16 10:09 | MHC.PC.OV ---
Vital Signs 11/16/24 10:15 Height 4 ft 11 in Weight 157 lb BMI 31.7 BP 100/66 Blood Pressure Location Rt brachial Position Sitting Respiration 16 Pulse 73 Pulse Source Pulse Oximeter Temp 98.2 F Temp Source Oral Pulse Oximetry (%) 98 Oxygen Delivery Method Room Air Intake Visit Reasons: PE reschedule Intake Note: Pt is here today for her PE: last mammogram 11/09/23, papsmear 10/07/21: Never had a colonoscopy Allergies No Known Allergies (No Known Allergies*) Allergy (Verified 11/16/24 10:39) Medication List - Last Reconciled 11/16/24 by Kerry Martínez MD albuterol sulfate 90 mcg/actuation 2 inhalations inhalation Q8H PRN zolpidem 5 mg PO BEDTIME PRN Tobacco use date assessed: 11/16/24 Dental Screening Dental Screen Date: 11/16/24 Did you have a dental visit in the last 12 months?: No Did you have a dental problem in the last 6 months where you did not have access to dental care?: No Was dental information given to patient?: Patient declined HPI PE reschedule HPI Details 59-year-old female presenting for a routine physical examination and preventative care. - Hyperlipidemia: Previous cholesterol levels were elevated, but last fasting lipid levels checked a year ago showed improvement in her LDL cholesterol. Will repeat another fasting lipid panel - Vitamin D deficiency: The patient is not currently taking supplements, but supplementation was recommended, at least 2000 units vitamin D3 daily. - Obesity: The patient reports weight gain despite being active with yard work and walking regularly for exercise, adherence to healthy eating habits, does not do any bedtime snacking. Patient also states that she has started taking supplement that she bought online that contains GLP 1 agonist in tablet form, a month ago. Has not helped, in fact has gained weight while taking it . No adverse effects noted from taking it - Asthma: The patient has albuterol inhaler which she takes as needed, rarely needing to take. Up-to-date with her pneumonia vaccines and gets yearly flu vaccine - History of thyroid disorder: The patient had a thyroid issue many years ago, which has since resolved. Denies any symptoms of increased fatigue, no change in bowel movements, no muscle pain - Preventative care: The patient is up to date with vaccinations and is considering wants to do her repeat Pap smear next year, does not want to do colonoscopy screening but willing to do Cologuard test, states that she will have to check with her insurance 1st if it is covered as her previous insurance which was [employer], did not approve it -- Vaccinations: Up to date with COVID boosters, flu shots, pneumonia, and tetanus vaccines. - Screening: Mammogram scheduled, Pap smear and colon cancer screening discussed. - Lifestyle: Engages in regular physical activity through yard work and walking. - Diet: Consumes a balanced diet with overnight oats, wraps, and light dinners. [facility] Medical History (Updated 11/16/24 @ 12:57 by Kerry Martínez MD) Anxiety and depression Annual visit for general adult medical examination with abnormal findings Chronic insomnia Dyslipidemia Impaired fasting glucose History of anemia Vitamin D deficiency Mild intermittent asthma Acquired hypothyroidism Surgical History S/P LASIK surgery of both eyes Hx of shoulder surgery Hx of shoulder surgery History of arthroplasty of right shoulder Hx of removal of cyst H/O tubal ligation Family History Father Myocardial infarction, Onset Age: 65 Maternal Grandmother Breast cancer, Onset Age: 68 Social History Household Members: Spouse Housing: House Are you a primary home visit field care manager to a significant other at home: No Do you presently have visiting nurse or other home services: No (will be staying with in-laws post-op) Alcohol intake: current Comment: aware of trip hazard Patient Tobacco Use Status: Former Tobacco user Tobacco use type: Cigarette e-Cigarette/Vaping Use: Never Used service: No Current occupational status: employed 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 1. Little interest or pleasure in doing things: not at all 2. Feeling down, depressed, or hopeless: not at all 3. Trouble falling or staying asleep, or sleeping too much: more than half the days 4. Feeling tired or having little energy: several days 5. Poor appetite or overeating: more than half the days 6. Feeling bad about yourself - or that you are a failure or have let yourself or your family down: not at all 7. Trouble concentrating on things, such as reading the newspaper or watching television: not at all 8. Moving or speaking so slowly that other people could have noticed. Or the opposite - being so fidgety or restless that you have been moving around a lot more than usual: not at all 9. Thoughts that you would be better off or of hurting yourself in some way: not at all Total score: 5 Depression Screening Interpretation: Negative Depression Screening Done: Yes 66146 - PHQ-9 Billing: Yes Source: Developed by Drs. Sabino Peace, Jacey Mejia, Rafi Crystal and colleagues, with an educational fareed from [employer]. Thrive Questionnaire Date Thrive assessed: 11/16/24 I am a: Patient What is your living situation today?: I have a steady place to live Within the past 12 months, did the food you bought not last and you didn't have the money to get more?: Never true Within the past 12 months, did you worry whether your food would run out before you got money to buy more?: Never true Do you have trouble paying for medicines?: No Do you have trouble getting transportation to medical appointments?: No Do you have trouble paying your heating and electricity bill?: No Do you have trouble taking care of your child, family member or friend?: No Do you have trouble with day-to-day activities such as bathing, preparing meals, shopping, managing finances, etc.?: No Are you currently unemployed and looking for a job?: No Are you interested in more education?: No Please select the resources that you would like help with: None Currently or been in a relationship where the following occur: No concerns reported THRIVE Score: 0 AUDIT C Alcohol Use Questionnaire (AUDIT-C) 1. How often do you have a drink containing alcohol?: 2-4 times a month Total Score: 2 Score Reviewed/Action Taken: Yes TELLY-7 AMB Questionnaire TELLY-7 Date TELLY - 7 assessed: 11/16/24 Feeling nervous, anxious, or on edge: 1 = Several days Not being able to stop or control worryin = Not at all Worrying too much about different things: 1 = Several days Trouble relaxin = Several days Being so restless that it is hard to sit still: 0 = Not at all Becoming easily annoyed or irritable: 0 = Not at all Feeling afraid as if something awful might happen: 0 = Not at all Total TELLY-7 score (0-4 normal; 5-9 mild; 10-14 moderate; 15-21 severe): 3 Source: Developed by Drs. Sabino Peace, Jacey Mejia, Rafi Crystal and colleagues, with an educational fareed from [employer]. TELLY-7 Assessment Billing TELLY-7 Assessment Tool: TELLY-7 Assessment 87066 Review of Systems Const Denies headache(s), Denies malaise, Denies poor appetite and Denies weakness Eyes Reports no additional complaints ENT Denies dizziness, Denies headache(s) and Denies nasal congestion Card Denies chest pain, Denies lightheadedness and Denies dyspnea Resp Denies chest congestion, Denies cough and Denies dyspnea GI Denies abdominal pain, Denies change in bowel habits and Denies heartburn Reports no additional complaints Musc Reports no additional complaints Skin/Breast Denies breast pain, Denies breast mass and Denies rash Neuro Denies dizziness, Denies headache(s) and Denies weakness Psych Reports no additional complaints Endo Reports no additional complaints Adarsh/Lymph Reports no additional complaints Aller/Immun Reports no additional complaints Physical exam (Primary Care) Vital Signs: Last Vital Signs Temp 98.2 F 11/16/24 10:15 Pulse 73 11/16/24 10:15 Resp 16 11/16/24 10:15 BP 100/66 11/16/24 10:15 Pulse Ox 98 11/16/24 10:15 Oxygen Delivery Method Room Air 11/16/24 10:15 BMI result Body Mass Index 31.7 Tobacco/Smoking Status: Tobacco use Status Tobacco use date assessed 11/16/24 11/16/24 10:13 Patient Tobacco Use Status Former Tobacco user 11/16/24 10:10 Tobacco use type Cigarette 11/16/24 10:10 e-Cigarette/Vaping Use Never Used 11/16/24 10:10 PHQ-9: PHQ-9 Score PHQ-9: Total score 5 11/16/24 12:58 Depression Screening Interpretation: Negative Thrive Assessment: Date of Thrive Assessment Date Thrive assessed 11/16/24 11/16/24 10:13 Currently or been in a relationship where the following occur: No concerns reported Advance Care Planning discussion: Completed/Scanned Date of discussion: 11/16/24 Who was present: Patient Forms completed: Health Care Proxy Time spent: 16-45 minutes Actual minutes spent: 2 Const General: no acute distress and alert Orientation/consciousness: patient oriented x3 HENMT Head: Yes normocephalic Ears: external ears normal, TM's normal bilaterally and EAC's normal General nose exam: Normal external nose present Face and sinus: Yes face symmetric Teeth and gingiva: dentition normal Eyes General: appearance normal, both eyes and all related structures Neck Neck: Yes full ROM, Yes no lymphadenopathy and Yes supple Chest Chest palpation & inspection: normal inspection of the chest Breast/axilla palpation: normal palpation of the breasts Resp Effort & Inspection: normal respiratory effort and able to speak in complete sentences Auscultation: clear to auscultation bilaterally Cardio Rate: regular rate Rhythm: regular rhythm Heart sounds: S1 normal heart sound present and S2 normal heart sound present GI Other: Soft, with normal bowel sounds, nontender with no mass palpated General: Yes no CVA tenderness Back/Spine/Pelvis Back: no CVA tenderness and No back tenderness Skin General skin exam: no rashes or lesions noted Neuro General: patient oriented x3, gait normal, tone normal, moves all extremities, Normal light touch and pain sensation and no focal motor deficits Cognition (Neuro): normal cognition Extrem General: Yes full ROM, Yes no joint enlargement, Yes no clubbing, cyanosis or edema, Yes no calf tenderness and Yes normal gait Psych Appearance: grossly normal and well kempt Mental Status: mental status grossly normal Speech and movement: Normal speech and movement present Affect: Sad affect present Attitude: cooperative Coding Level of Care Code Est Pt Prev Care 40-64y(59409) Diagnoses Annual visit for general adult medical examination with abnormal findings Z00.01 Dyslipidemia E78.5 Impaired fasting glucose R73.01 Acquired hypothyroidism E03.9 Mild intermittent asthma without complication J45.20 Asthma complication type: uncomplicated Advance directive discussed with patient Z71.89 Additional Codes TELLY-7 Assessment Billing - TELLY-7 Assessment Tool: TELLY-7 Assessment 21691 ([id number]) PHQ-9 - 85753 - PHQ-9 Billing: Yes ([id number]) Vital Signs *Quality* - Advance Care Planning discussion: Completed/Scanned ([id number]) Vital Signs *Quality* - Time spent: 16-45 minutes ([id number]) Assessment & Plan Assessment & Plan (1) Annual visit for general adult medical examination with abnormal findings: Code(s): Z00.01 - Encounter for general adult medical examination with abnormal findings (2) Dyslipidemia: Comment: borderline- no meds Code(s): E78.5 - Hyperlipidemia, unspecified Category: Medical (3) Impaired fasting glucose: Code(s): R73.01 - Impaired fasting glucose Category: Medical (4) Acquired hypothyroidism: Comment: Thyroid levels within normal limits Code(s): E03.9 - Hypothyroidism, unspecified Category: Medical (5) Mild intermittent asthma: Code(s): J45.20 - Mild intermittent asthma, uncomplicated Category: Medical Qualifiers: Asthma complication type: uncomplicated Qualified Code(s): J45.20 - Mild intermittent asthma, uncomplicated (6) Advance directive discussed with patient: Code(s): Z71.89 - Other specified counseling Plan: Initiated the conversation about Advanced Directives. Advanced Directives help patients prepare for current and future decisions about their medical treatment and place of care. Discussed with patient that it is a process where a patients current condition and prognosis are reviewed, their wishes for information regarding their illness are elicited, and likely medical dilemmas are presented and options discussed. Healthcare proxy form completed today. The form can be amended as needed, reviewed yearly and make changes as needed Plan For hyperlipidemia, the patient will maintain her current lifestyle modifications, and cholesterol levels will be re-evaluated at the next visit. Vitamin D supplementation of 2000 IU daily is recommended, especially neither the fall season will be starting For obesity, the patient is advised to stop getting the GLP 1 tablets online, does not want, continue daily moderate intensity exercise for at least 15 minutes, adhering to healthy eating habits and consider consulting a weight loss clinic for further management options. Asthma management will continue with the use of an inhaler as needed, with no current changes required. Preventative care measures include scheduling doing colon cancer screening via Cologuard, will check with insurance if covered, does not want to do colonoscopy procedure. Will repeat another cervical cancer screening and pelvic exam next year. Up-to-date with her vaccines, up-to-date with her breast cancer screening, has an appointment already scheduled for her repeat screening mammogram Patient was informed and verbally consented to the use of an ambient scribe for clinic note documentation during this visit.
[2024-11-16 10:15] VITALS: BP 100/66; PULSE 73; RESP 16; TEMP 36.8; O2SAT 98; BMI 31.7
--- OUTSIDE RECORDS SUMMARY | 2024-11-16 11:13 | XMS_ITS | Clinical Summary ---
Author Organization [facility] Address [address] [place] [phone] Phone Care Team Providers Care Supervisor Extruding Department Name Role Phone Kerry Martínez MD Primary Care Provider Allergies No known active allergies Medications albuterol 90 mcg/actuation inhaler 90 mcg. Active clindamycin (CLEOCIN) 300 MG capsule TAKE 1 TABLET BY MOUTH 3 TIMES DAILY UNTIL FINISHED 08/01/19 23 Active tetanus toxoid-reduced diphth toxoid-acell pertussis (BOOSTRIX) 2.5-8-5 Lf-mcg-Lf/0.5mL IM syringe Boostrix Tdap 2.5 Lf unit-8 mcg-5 Lf/0.5 mL intramuscular syringe PHARMACY ADMINISTERED Active influenza quadrivalent 2019-21, 36 mos+, (AFLURIA QD 2020-21,3YR UP,,PF,) 60 mcg (15 mcg x 4)/0.5 mL IM syringe Afluria Qd 2020-21 (36 mos up)(PF)60 mcg (15 mcg x4)/0.5 mL IM syringe Active levothyroxine (SYNTHROID, LEVOTHROID) 50 MCG tablet levothyroxine 50 mcg tablet Active triamcinolone acetonide 0.5 % cream triamcinolone acetonide 0.5 % topical cream Active zolpidem (AMBIEN) 5 MG tablet zolpidem 5 mg tablet TAKE 1 TABLET BY MOUTH EVERY DAY Active zolpidem (AMBIEN CR) 6.25 MG CR tablet Take 6.25 mg by mouth nightly at bedtime as needed. 08/05/19 23 Active iron,carb/vit C/vit B12/folic (IRON 100 PLUS ORAL) iron one tablet every other day Active naproxen (NAPROSYN) 500 MG tablet Take 1 tablet (500 mg total) by mouth 2 (two) times a day for 3 days. Then twice daily as needed for pain, inflammation 20 tablet 09/15/19 Active Active Problems No known active problems Social History Tobacco Use Types Packs/Day Years Used Date Smoking Tobacco: Never Smokeless Tobacco: Never Tobacco Cessation:Counseling Given: Not Answered Alcohol Use Standard Drinks/Week Comments Yes 0 (1 standard drink = 0.6 oz pur e alcohol) Occassionally Education Answer Date Recorded Are you interested in more education? Not on mariusz e 09/14/2022 Are you concerned about learning? Not on file 09/14/2022 No 09/14/2022 No 09/14/2022 Digital Access Answer Date Recorded No 09/14/2022 No 09/14/2022 Reliable internet access at home? Not on file 09/14/2022 Device with a working camera? Not on file Comments Unknown Sex and Gender Information Value Date Recorded Sex Assigned at Not on file Legal Sex Female 9:38 PM EDT Gender Identity Not on file Sexual Orientation Not on file Last Filed Vital Signs Vital Sign Reading Time Taken Comments Blood Pressure 110/74 09/14/2022 12:34 PM EDT Pulse 68 09/14/2022 12:34 PM EDT Temperature 36.1 C (97 F) 09/14/2022 12:34 PM EDT Respiratory Rate 16 09/14/2022 12:34 PM EDT Oxygen Saturation 98% 09/14/2022 12:34 PM EDT Inhaled Oxygen Concentration - - Weight 65.8 kg (145 lb) 09/14/2022 12:34 PM EDT Height 149.9 cm (4' 11 ) 09/14/2022 12:34 PM EDT Body Mass Index 29.29 09/14/2022 12:34 PM EDT Plan of Treatment Health Maintenance Due Date Last Done Comments LIPID PANEL 1967 TSH LEVEL 1967 DEPRESSION SCREENING 1979 HEPATITIS C SCREENING 09/17/1985 HIV ONE-TIME SCREENING (18-65 YEARS) 09/17/1985 PAP SMEAR 09/17/1988 SCREENING FOR DIABETES 09/17/2002 MAMMOGRAM 2007 COLOGUARD 09/17/2012 COLONOSCOPY 09/17/2012 COLORECTAL CANCER SCREENING 09/17/2012 FIT TEST 09/17/2012 FOBT 09/17/2012 SIGMOIDOSCOPY 09/17/2012 VIRTUAL COLONOSCOPY 09/17/2012 PNEUMOCOCCAL VACCINES (50+ years) (1 of 1 - PCV) 09/17/2017 ZOSTER VACCINES (1 of 2) 09/17/2017 COVID-19 VACCINE ( - season) 2023 12/23/2021, 02/03/2021, 06/04/2020, Additional history exists Adult Td,Tdap Booster 02/27/2030 02/28/2020 SMOKING STATUS SCREENING (Once After 26 Yrs) Completed 09/14/2022 HEPATITIS A VACCINES Aged Out No long er eligible based on patient's age to complete this topic HIB VACCINES Aged Out No longer eligi ble based on patient's age to complete this topic MENINGOCOCCAL VACCINES (ACWY) Aged Out No longer eligible based on patient's age to complete this topic MENINGOCOCCAL VACCINES (B) Aged Out N o longer eligible based on patient's age to complete this topic Medical Devices Not on file Insurance CIGNA PPO CIGNA PPO CIG PPO CIGNA PPO CIGNA PPO CIGNA PPO CIGNA PPO Care Teams Supervisor Extruding Department Relationship Specialty Start Date End Date Kerry Martínez MD [facility] [place] [id number] PCP - General Internal Medicine 09/14/22 Additional Source Comments The information contained in this document represents components of the legal health record. It is not the complete legal health record.[facility]
== END 2024-11-16 13:26 | disposition home or self-care (01) ==
LOC: HO.HMCC 09:52
PROVIDERS: Visit Provider Internal Medicine
DX: Z00.01 Encounter for general adult medical examination with abnormal findings (principal); E78.5 Hyperlipidemia, unspecified; R73.01 Impaired fasting glucose; E03.9 Hypothyroidism, unspecified; J45.20 Mild intermittent asthma, uncomplicated; Z71.89 Other specified counseling; Z00.00 Encounter for general adult medical examination without abnormal findings

== ENCOUNTER → 2024-11-16 09:51 | Outpatient (BNVA) | payer OTHER, SELFPAY | PROVIDERS: Visit Provider Internal Medicine | DX: Z00.01 Encounter for general adult medical examination with abnormal findings (principal); E78.5 Hyperlipidemia, unspecified; E55.9 Vitamin D deficiency, unspecified; E66.9 Obesity, unspecified; J45.909 Unspecified asthma, uncomplicated; R73.01 Impaired fasting glucose; E03.9 Hypothyroidism, unspecified; J45.20 Mild intermittent asthma, uncomplicated; Z71.89 Other specified counseling | CPT/HCPCS: 96127 ==

== ENCOUNTER 2024-11-25 08:18 | Outpatient (REF) | payer OTHER, SELFPAY ==
--- OUTSIDE RECORDS SUMMARY | 2024-11-25 08:27 | XMS_ITS | Clinical Summary ---
Author Organization [facility] Address [address] [place] [address] Phone Care Team Providers Care Labor Contract Analyst Name Role Phone Kerry Martínez MD Primary [...] intramuscular syringe PHARMACY ADMINISTERED Active influenza quadrivalent 2020-21, 36 mos+, (AFLURIA QD 2020-21,3YR UP,,PF,) 60 [...] on file Insurance CIGNA PPO CIGNA PPO Member Subscriber Plan / Payer (Ef fective 2014-Present) Name:Rebeca Jiménez Relation to Subscriber:Self Name:REBECA JIMÉNEZ Payer ID:[id number] ([facility]) Type:PPO Address: [place] [address] CIG PPO Member Subscriber Plan / Payer (Ef fective 2014-Present) Name:Rebeca Jiménez Relation to Subscriber:Self Name:JIMÉNEZREBECA Payer ID:[id number] ([facility]) Type:PPO Address: [place] [address] CIGNA PPO Member Subscriber Plan / Payer (Ef fective 2014-Present) Name:Rebeca Jiménez Relation to Subscriber:Self Name:JIMÉNEZREBECA Payer ID:[id number] ([facility]) Type:PPO Address: [place] [address] CIGNA PPO Member Subscriber Plan / Payer (Ef fective 2014-Present) Name:Rebeca Jiménez Relation to Subscriber:Self Name:REBECA JIMÉNEZ Payer ID:[id number] ([facility]) Type:PPO Address: [place] [address] Member Subscriber Plan / Payer (Ef fective 2014-Present) Name:Rebeca Jiménez Relation to Subscriber:Self Name:REBECA JIMÉNEZ Payer ID:[id number] ([facility]) Type:PPO Address: [place] [address] CIGNA PPO Member Subscriber Plan / Payer (Ef fective 2014-Present) Name:Rebeca Jiménez Relation to Subscriber:Self Name:REBECA JIMÉNEZ Payer ID:[id number] ([facility]) Type:PPO Address: [address] [place], [place] [id number] CIGNA PPO Care Teams Labor Contract Analyst Relationship Specialty Start Date End Date Kerry Martínez MD [facility] [place] [id number] PCP - General Internal Medicine 09/14/22 Additional Source Comments The information contained in this document represents components of the legal health record. It is not the complete legal health record.[facility]
[2024-11-25 11:16] LABS: Hemoglobin A1C 139.8266 umol/L; Total Hemoglobin (HGBA1C) 3706.0240 umol/L
[2024-11-25 11:33] LABS: Alanine Aminotransferase 19 U/L (0-31); Anion Gap 13 (12-20); Aspartate Amino Transferase 29 U/L (5-31); Blood Urea Nitrogen 20 mg/dL (9-16); Calcium 9.2 mg/dL (8.4-10.2); Carbon Dioxide 25 mmol/L (22-29); Chloride 109 mmol/L (96-108); Cholesterol 201 mg/dL (<200); Estimated Glomerular Filt Rate > 60; HDL Cholesterol 50 mg/dL (>40); Potassium 4.7 mmol/L (3.3-5.1); Sodium 142 mmol/L (135-145); Triglycerides 51 mg/dL (<150)
[2024-11-25 11:49] LABS: Free T4 (Free Thyroxine) 0.94 ng/dL (0.71-1.85); Thyroid Stimulating Hormone 2.13 uIU/mL (0.32-4.0)
== END 2024-11-25 08:19 | disposition home or self-care (01) ==
LOC: HO.HMGCLDS 08:18
PROVIDERS: PCP Internal Medicine; Visit Provider Internal Medicine
DX: R73.01 Impaired fasting glucose (principal); F51.04 Psychophysiologic insomnia; E78.5 Hyperlipidemia, unspecified; J45.20 Mild intermittent asthma, uncomplicated; E03.9 Hypothyroidism, unspecified
CPT/HCPCS: 36415; 80048; 80061; 83036; 84439; 84443; 84450; 84460; 86376

== ENCOUNTER 2024-12-22 08:41 | Outpatient (REF) | payer OTHER, SELFPAY ==
--- NOTE | ~2024-12-22 | MM_ITS ---
EXAMINATION: MM SCREENING DIGITAL BREAST TOMOSYNTHESIS, BILATERAL CLINICAL INFORMATION: Screening. Asymptomatic. COMPARISON: Comparison made to multiple prior, most recent November 09, 2023, and most remote January 02, 2016. TECHNIQUE: Digital breast tomosynthesis is performed in mediolateral oblique and craniocaudal views along with computer-aided detection (CAD). Synthesized 2D images are generated from the tomosynthesis. FINDINGS: BREAST COMPOSITION: There are scattered areas of fibroglandular density. BILATERAL BREASTS: No significant masses, suspicious calcifications or other abnormalities are seen in either breast. MM/MM tomosynthesis screening BI IMPRESSION: BILATERAL BREASTS: Negative, no mammographic evidence of malignancy. Normal interval follow-up is recommended in 12 months. ASSESSMENT: BI-RADS: Category 1: Negative RECOMMENDATION: Routine annual mammography screening. FOLLOW-UP: 1 year F/U This examination should not preclude the clinical evaluation of a suspicious palpable abnormality. This patient's information was entered into a reminder system with a target due date for their next mammogram. Electronically signed by: Gibran Burgos MD 12/25/2024 06:18 PM EDT
--- OUTSIDE RECORDS SUMMARY | 2024-12-22 09:06 | XMS_ITS | Clinical Summary ---
Author Organization [facility] Address [address] [place] [phone] Phone Care Team Providers Care Vb Net Developer Name Role Phone Kerry Martínez MD Primary [...] 09/17/2017 ZOSTER VACCINES (1 of 2) 09/17/2017 INFLUENZA VACCINE (#1) 2024 , 01/07/2021, 12/25/2019, Additional history exists COVID-19 VACCINE ( season) 2024 12/23/2021, 02/03/2021, 06/04/2020, Additional history exists Adult [...] on file Insurance CIGNA PPO CIGNA PPO CIGNA PPO CIGNA PPO CIGNA PPO CIGNA PPO CIGNA PPO CIGNA PPO CIGNA PPO Care Teams Vb Net Developer Relationship Specialty Start Date End Date Kerry Martínez MD [address] [place] [id number] PCP - General Internal Medicine 09/14/22 Additional Source Comments The information contained in this document represents components of the legal health record. It is not the complete legal health record.[facility]
== END 2024-12-22 08:42 | disposition home or self-care (01) ==
LOC: HO.MAMMO 08:41
PROVIDERS: PCP Internal Medicine; Visit Provider Internal Medicine
DX: Z12.31 Encounter for screening mammogram for malignant neoplasm of breast (principal)
CPT/HCPCS: 77063; 77067

== ENCOUNTER → 2024-12-22 08:45 | Outpatient (BNV) | payer OTHER, SELFPAY | PROVIDERS: PCP Internal Medicine; Visit Provider Radiology Body Imaging | DX: Z12.31 Encounter for screening mammogram for malignant neoplasm of breast (principal) | CPT/HCPCS: 77063; 77067 ==